=== PATIENT | female | born 1980 | race Caucasian/White ===

== ENCOUNTER → 2016-08-13 | Outpatient (CLI) | payer OTHER ==
[~2016-08-13] MED LIST: /ESOM40CA; /PREG100CA PO; ABIL10TA PO; ADVAIR; ALB2.5NEB INH; ALBU17IN INH; ALEVE; AMIT25TA2; AMIT75TA PO; BCP; BUPR15TA; CALCTAB54 PO; CELE20TA PO; CETI10TA PO; CLAR10CA3 PO; COLA100C2; CYMB60CA3 PO; DICY10CA PO; DOXY150C PO; DULE200A INH; EXCETAB; FLEXERIL; FLINCHW9 PO; FLON0.054; IBUP800T OR; IMIT50TA PO; MUCI600T34 PO; NORC5TAB PO; OXYB10TA PO; OXYB5TAB80 PO; PERC10TA17 PO; PERC5TAB8; PERC5TAB8 OR; POTA10TA44 PO; PRED10PA PO; PRED20TA PO; PRED50TA2 PO; SAVELLA; SING10TA31; SING4GRA PO; SYMB16INH INH; TESS100C PO; TOPA100T PO; VALI5TAB PO; VENTAER; VITA50003 PO; VITA500T53 PO; XOPEAER IN; magnesium oxide PO
== END ==
LOC: M LAB 08:13
PROVIDERS: ATTEND Obstetrics & Gynecology
DX: Z36 Encounter for antenatal screening of mother (principal); Z3A.00 Weeks of gestation of pregnancy not specified

== ENCOUNTER 2016-08-28 19:34 | Emergency (ER) | payer OTHER ==
[~2016-08-28] VITALS: Ht 167.6 cm; Wt 99.8 kg
[2016-08-28] MEDS ORDERED: OXYC15TA76 PO (19:47)
[2016-08-28] MEDS ORDERED: GABA-283 PO (19:47)
[2016-08-28] MEDS ORDERED: OXYCODONE/APAP 5MG/325MG(BULK FOR ED) 1 TABLET PO ONE (21:45)
[2016-08-28 21:57] VITALS: BP 135/99
== END 2016-08-28 22:00 | disposition home or self-care (01) ==
LOC: M ED 21:47
DX: O99.89 Other specified diseases and conditions complicating pregnancy, childbirth and the puerperium (principal); M54.5 Low back pain; G89.29 Other chronic pain; O99.513 Diseases of the respiratory system complicating pregnancy, third trimester; J45.909 Unspecified asthma, uncomplicated; O99.343 Other mental disorders complicating pregnancy, third trimester; F32.9 Major depressive disorder, single episode, unspecified; F41.9 Anxiety disorder, unspecified; O99.333 Smoking (tobacco) complicating pregnancy, third trimester; F17.210 Nicotine dependence, cigarettes, uncomplicated; Z3A.31 31 weeks gestation of pregnancy

== ENCOUNTER 2016-09-03 09:48 | Emergency (ER) | payer OTHER ==
[~2016-09-03] VITALS: Ht 167.6 cm; Wt 99.8 kg
[2016-09-03 09:48] VITALS: BP 116/77
[~2016-09-03 09:48] MED LIST changes: +GABA-283 PO; +OXYC15TA76 PO
[2016-09-03] MEDS ORDERED: ACET-654 PO (11:36)
[2016-09-03] MEDS ORDERED: ROLA1CHW PO (11:36)
[2016-09-04] MEDS ORDERED: BENA25TA9 PO (18:52)
== END 2016-09-03 10:31 | disposition admitted as inpatient to this hospital (09) ==
LOC: M ED 10:23
DX: O99.513 Diseases of the respiratory system complicating pregnancy, third trimester (principal); R06.02 Shortness of breath; J45.909 Unspecified asthma, uncomplicated; Z3A.32 32 weeks gestation of pregnancy; Z79.899 Other long term (current) drug therapy

== ENCOUNTER 2016-09-03 10:25 | Outpatient (CLI) | payer OTHER ==
[~2016-09-03] VITALS: Ht 167.6 cm; Wt 100.0 kg
[2016-09-03 10:41] VITALS: BP 123/74
[2016-09-03] MEDS ORDERED: ACET-654 PO (11:36)
[2016-09-03] MEDS ORDERED: ROLA1CHW PO (11:36)
[2016-09-03] MEDS ORDERED: LR 1,000 ML IV SCH (11:45)
[2016-09-03] MEDS ORDERED: LR 1,000 ML IV ONE (11:45)
[2016-09-03 12:06] VITALS: BP 119/83
[2016-09-03 12:54] LABS: MEAN CORPUSCULAR HGB CONC 33.6 g/dl (32.0-36.5); MEAN CORPUSCULAR VOLUME 83.3 fl (80.0-96.0); RED CELL DISTRIBUTION WIDTH 12.6 % (11.5-14.5); WHITE BLOOD COUNT 12.6 K/mm3 (4.0-10.0)
[2016-09-03 13:18] LABS: ALBUMIN 2.4 GM/DL (3.2-5.2); ALBUMIN/GLOBULIN RATIO 0.63 (1.00-1.93); ALKALINE PHOSPHATASE 138 U/L (45-117); ALT/SGPT 17 U/L (12-78); ANION GAP 9 MEQ/L (8-16); AST/SGOT 16 U/L (15-37); BILIRUBIN,TOTAL 0.2 MG/DL (0.2-1.0); BLOOD UREA NITROGEN 11 MG/DL (7-18); CALCIUM LEVEL 8.3 MG/DL (8.5-10.1); CARBON DIOXIDE LEVEL 24 MEQ/L (21-32); CHLORIDE LEVEL 105 MEQ/L (98-107); CREATININE FOR GFR 0.74 MG/DL (0.55-1.02); GLOMERULAR FILTRATION RATE > 60.0 (>60); GLUCOSE, FASTING 82 MG/DL (70-105); POTASSIUM SERUM 4.3 MEQ/L (3.5-5.1); SODIUM LEVEL 138 MEQ/L (136-145); TOTAL PROTEIN 6.2 GM/DL (6.4-8.2)
[2016-09-04] MEDS ORDERED: BENA25TA9 PO (18:52)
== END 2016-09-03 15:30 | disposition home or self-care (01) ==
LOC: M LDO 10:25
PROVIDERS: ATTEND Advanced Practice Midwife
DX: O99.89 Other specified diseases and conditions complicating pregnancy, childbirth and the puerperium (principal); E16.2 Hypoglycemia, unspecified; E86.0 Dehydration; G89.29 Other chronic pain; K21.9 Gastro-esophageal reflux disease without esophagitis; O99.513 Diseases of the respiratory system complicating pregnancy, third trimester; O99.343 Other mental disorders complicating pregnancy, third trimester; O99.323 Drug use complicating pregnancy, third trimester; O99.333 Smoking (tobacco) complicating pregnancy, third trimester; Z98.84 Bariatric surgery status; O09.523 Supervision of elderly multigravida, third trimester; Z3A.32 32 weeks gestation of pregnancy

== ENCOUNTER 2016-09-04 18:00 | Outpatient (CLI) | payer OTHER ==
[~2016-09-04] VITALS: Ht 167.6 cm; Wt 100.0 kg
[~2016-09-04 18:00] MED LIST changes: +ACET-654 PO; +ROLA1CHW PO
[2016-09-04 18:08] VITALS: BP 134/80
[2016-09-04] MEDS ORDERED: BENA25TA9 PO (18:52)
[2016-09-04 19:47] VITALS: BP 130/81
[2016-09-04] MEDS ORDERED: GABAPENTIN 300 MG CAP PO SCH (21:00)
[2016-09-04] MEDS ORDERED: AMITRIPTYLINE 10 MG TAB PO SCH (21:00)
[2016-09-04] MEDS ORDERED: busPIRone 10 MG TAB PO SCH (21:00)
[2016-09-04] MEDS ORDERED: TERBUTALINE SULFATE 1 MG/ML VIAL (J3105) SC ONE (23:30)
[2016-09-04] MEDS ORDERED: diphenhydrAMINE 25 MG CAP PO PRN (23:45)
[2016-09-04] MEDS ORDERED: ACETAMINOPHEN 500 MG TAB PO PRN (23:45)
[2016-09-04 23:48] VITALS: BP 119/79
--- NOTE | 2016-09-05 00:02 | HPE ---
DATE OF ADMISSION: 09/04/2016 HISTORY: A 35-year-old G7, P2-0-4-2 female at 32-3/7 weeks gestation, estimated date of confinement (EDC) 10/27/2016 by last menstrual period (LMP) consistent with a first-trimester ultrasound presents with severe lower back pain that is debilitating. She has a history of chronic back pain due to spinal stenosis. She is a chronic narcotic user, taking 18 tablets per 24 hours of oxycodone. She ran out of oxycodone 2 days ago. She previously was prescribed approximately 500 oxycodone tablets per month by her primary care physician to manage her chronic pain. She was subsequently discharged from the practice with 30 days' notice due to breaking the pain contract by seeking pain medications outside of their office. She denies symptoms of withdrawal and says the pain has become more severe. course is through Dr. Eddy at [facility]. She has had contractions intermittently throughout . COURSE: Patient has had regular care through Dr. Eddy at [facility]. She was seen in consultation with Dr. Guerrero at [facility] in [place]. Plan is for repeat section with a history of two prior sections. OBSTETRICAL HISTORY: Term section times two. MEDICAL HISTORY: 1. Asthma. 2. Depression. 3. Gastroesophageal reflux disease (GERD). 4. Spinal stenosis. 5. Oxycodone dependence due to back pain. SURGICAL HISTORY: 1. Gastric bypass December 2013. 2. Cholecystectomy February 2014. 3. Knee surgery. 4. Tonsillectomy 2011. 5. section times two. ALLERGIES: ERYTHROMYCIN, which causes hives, and NONSTEROIDS, which cause gastrointestinal (GI) upset. MEDICATIONS: - calcium citrate - vitamin Clinic - BuSpar 10 mg by mouth twice a day - Benadryl 25 mg every 6 hours as needed - Tylenol - gabapentin 300 mg by mouth three times a day SOCIAL HISTORY: The patient is a smoker. She is a chronic narcotic user. She denies other drug use. FAMILY HISTORY: Noncontributory. PHYSICAL EXAMINATION: Blood pressure 134/80, pulse 106, afebrile. She is no apparent distress. Head and neck normal. Lungs clear. Heart regular rate and rhythm. Abdomen nontender, gravid. heart tones category 1. Cervix long and closed. Contractions every 2-5 minutes. Extremities nontender. ASSESSMENT: A 35-year-old G7, P2-0-4-2 female at 32-4/7 weeks gestation who presents with contractions. She has a history of chronic back pain and is currently not being medicated. PLAN: Admit for IV fluids and observation of contractions. Will look for cervical change. Will observe for finds of opioid withdrawal. Patient has medical appointment to see a different provider regarding her chronic back pain and narcotic use. TAMI
[2016-09-05 00:40] VITALS: BP 119/54
[2016-09-05 02:23] VITALS: BP 113/58
[2016-09-05 05:20] VITALS: BP 109/67
[2016-09-05 06:58] VITALS: BP 128/74
== END 2016-09-05 07:21 | disposition home or self-care (01) ==
LOC: M LDO 18:00
PROVIDERS: ATTEND Specialist
DX: O99.89 Other specified diseases and conditions complicating pregnancy, childbirth and the puerperium (principal); M48.00 Spinal stenosis, site unspecified; G89.29 Other chronic pain; K21.9 Gastro-esophageal reflux disease without esophagitis; O99.323 Drug use complicating pregnancy, third trimester; O99.513 Diseases of the respiratory system complicating pregnancy, third trimester; O99.343 Other mental disorders complicating pregnancy, third trimester; Z98.84 Bariatric surgery status; O09.523 Supervision of elderly multigravida, third trimester; Z3A.32 32 weeks gestation of pregnancy

== ENCOUNTER → 2016-09-12 | Outpatient (REF) | payer OTHER ==
[~2016-09-12] MED LIST changes: +BENA25TA9 PO
== END ==
LOC: M LAB REF 10:31
PROVIDERS: ATTEND Advanced Practice Midwife
DX: Z34.83 Encounter for supervision of other normal pregnancy, third trimester (principal); Z36 Encounter for antenatal screening of mother

== ENCOUNTER → 2016-09-22 | Outpatient (REF) | payer OTHER ==
[2016-09-28 08:06] LABS: BENZODIAZEPINES, URINE SCREEN Negative ng/mL (Cutoff=200); METHADONE, URINE SCREEN Negative ng/mL (Cutoff=300); OXYCODONE URINE Negative (Cutoff=100); pH, URINE 5.8 (4.5-8.9)
== END ==
LOC: M LAB REF 17:18
PROVIDERS: ATTEND Nurse Practitioner Family
DX: M54.41 Lumbago with sciatica, right side (principal)

== ENCOUNTER → 2016-10-01 | Outpatient (REF) | payer OTHER ==
[~2016-10-01] MED LIST changes: -ACET-654 PO; +ACET1TAB17 PO; +BENA25TA10 PO; -BENA25TA9 PO; +BUSP15TA47 PO; +DIPH50CA29 PO; +GABA-282 PO; +HYDR-3713 PO; +IMIT4KIT SC; +NEUR600T PO; +NORC1TAB4 PO; +OXYC-517; +OXYC1SOL3 PO; +OXYC1TAB23 PO; +PANT40TA2 PO; -PERC10TA17 PO; +PERC10TA26 PO; +PHEN1SUP6 PO; +PROM50TA4 PO; +PROT1TAB2 PO; +PROZ10CA7 PO; +ROBA500T PO; +SUCR1TAB56 PO; +TYLETAB14 PO; +VITA1CAP40 PO; -VITA50003 PO; +ZOLO25TA PO
== END ==
LOC: M LAB REF 17:28
PROVIDERS: ATTEND Specialist
DX: Z34.83 Encounter for supervision of other normal pregnancy, third trimester (principal)

== ENCOUNTER → 2016-10-02 | Outpatient (CLI) | payer OTHER ==
--- NOTE | 2016-10-02 13:16 | REP ---
Clinical: Growth evaluation. Comparison: None . Findings: Examination demonstrates a single live intrauterine in cephalic presentation. motion is identified by technologist. Placenta is noted posteriorly and grade one without evidence for placenta previa or abruption. Amniotic fluid volume is normal. Gestational age by LMP 36 weeks 3 days with CLAUDETTE 10/27/2016 . Gestational age by current measurements 35 weeks 4 days with CLAUDETTE 11/02/2016 . FHR equals 141 beats per minute. BPD 8.9 cm 36 weeks 1 day HC 32.4 cm 36 weeks 5 days AC 33.1 cm 37 weeks 0 days FL 6.8 cm 34 weeks 6 days HL 6.3 cm 36 weeks 3 days HC/AC ratio 0.98 Estimated weight 2916 grams ( 51st percentile). ARAVIND equals 18.2 cm (7.6 - 24.7). Impression: Single live advanced gestation in cephalic presentation demonstrating appropriate interval growth. Estimated weight normal. ARAVIND normal. Signed by Lauro Neal MD 10/02/2016 01:07 P
== END ==
LOC: M SMT 11:07
PROVIDERS: ATTEND Advanced Practice Midwife
DX: K91.2 Postsurgical malabsorption, not elsewhere classified (principal)

== ENCOUNTER 2016-10-12 04:50 | Emergency (ER) | payer OTHER ==
[~2016-10-12] VITALS: Ht 167.6 cm; Wt 105.9 kg
[~2016-10-12 04:50] MED LIST changes: -BUSP15TA47 PO; -DIPH50CA29 PO; -GABA-282 PO; -HYDR-3713 PO; -IMIT4KIT SC; -NEUR600T PO; -NORC1TAB4 PO; -OXYC-517; -OXYC1SOL3 PO; -OXYC1TAB23 PO; -PANT40TA2 PO; -PHEN1SUP6 PO; -PROM50TA4 PO; -PROT1TAB2 PO; -PROZ10CA7 PO; -ROBA500T PO; -SUCR1TAB56 PO; -TYLETAB14 PO; -ZOLO25TA PO
[2016-10-12] MEDS ORDERED: OXYC15TA76 PO (05:10)
[2016-10-12] MEDS ORDERED: DIPH50CA29 PO (05:10)
[2016-10-12 05:59] VITALS: BP 152/70
[2016-10-12] MEDS ORDERED: LORazepam 0.5 MG TAB PO STA (06:25)
[2016-10-13] MEDS ORDERED: PHEN1SUP6 PO (08:18)
[2016-10-13] MEDS ORDERED: GABA-282 PO (08:18)
[2016-10-13] MEDS ORDERED: BUSP15TA47 PO (08:18)
[2016-10-13] MEDS ORDERED: PROZ10CA7 PO (08:18)
[2016-10-24] MEDS ORDERED: OXYC1SOL3 PO (12:44)
== END 2016-10-12 06:48 | disposition home or self-care (01) ==
LOC: M ED 04:50
DX: F41.1 Generalized anxiety disorder (principal); F32.9 Major depressive disorder, single episode, unspecified; M79.7 Fibromyalgia; G43.909 Migraine, unspecified, not intractable, without status migrainosus; Z79.899 Other long term (current) drug therapy; Z88.1 Allergy status to other antibiotic agents; Z88.6 Allergy status to analgesic agent

== ENCOUNTER 2016-10-14 21:53 | Outpatient (CLI) | payer OTHER ==
[~2016-10-14] VITALS: Ht 167.6 cm; Wt 100.0 kg
[~2016-10-14 21:53] MED LIST changes: +BUSP15TA47 PO; +DIPH50CA29 PO; +GABA-282 PO; +PHEN1SUP6 PO; +PROZ10CA7 PO
[2016-10-14] MEDS ORDERED: IMIT4KIT SC (22:08)
[2016-10-14 22:10] VITALS: BP 125/89
[2016-10-14 22:11] VITALS: BP 125/89
[2016-10-14] MEDS ORDERED: LR 1,000 ML IV ONE (22:30)
[2016-10-14] MEDS ORDERED: PROMETHAZINE INJ 25 MG/ML VIAL (J2550) IV ONE (22:30)
[2016-10-15] MEDS ORDERED: diphenhydrAMINE INJ 50MG/ML VIAL (J1200) IV ONE
[2016-10-24] MEDS ORDERED: OXYC1SOL3 PO (12:44)
== END 2016-10-15 07:00 | disposition home or self-care (01) ==
LOC: M LDO 21:53
PROVIDERS: ATTEND Obstetrics & Gynecology
DX: O99.89 Other specified diseases and conditions complicating pregnancy, childbirth and the puerperium (principal); Z3A.38 38 weeks gestation of pregnancy; G43.909 Migraine, unspecified, not intractable, without status migrainosus; Z88.8 Allergy status to other drugs, medicaments and biological substances

== ENCOUNTER → 2016-10-15 | Outpatient (CLI) | payer OTHER ==
[~2016-10-15] MED LIST changes: +HYDR-3713 PO; +IMIT4KIT SC; +NEUR600T PO; +NORC1TAB4 PO; +OXYC-517; +OXYC1SOL3 PO; +OXYC1TAB23 PO; +PANT40TA2 PO; +PROM50TA4 PO; +PROT1TAB2 PO; +ROBA500T PO; +SUCR1TAB56 PO; +TYLETAB14 PO; +ZOLO25TA PO
[2016-10-16 10:07] LABS: ADD MANUAL DIFFER YES; MEAN CORPUSCULAR HEMOGLOBIN 24.9 pg (27.0-33.0); MEAN CORPUSCULAR HGB CONC 31.6 g/dl (32.0-36.5); MEAN CORPUSCULAR VOLUME 78.9 fl (80.0-96.0); PLATELET COUNT, AUTOMATED 352 k/mm3 (150-450); RED CELL DISTRIBUTION WIDTH 13.6 % (11.5-14.5)
[2016-10-16 10:41] LABS: BASOPHILS 1 % (0-4)
[2016-10-16 10:42] LABS: HYPOCHROMASIA 1+
[2016-10-16 10:43] LABS: THYROXINE (T4) 14.9 UG/DL (4.5-12.0)
== END ==
LOC: M SMT 15:48
PROVIDERS: ATTEND Advanced Practice Midwife
DX: R53.81 Other malaise (principal)

== ENCOUNTER 2016-10-17 17:16 | Inpatient (IN) | payer OTHER ==
[~2016-10-17] VITALS: Ht 167.6 cm; Wt 104.0 kg
[~2016-10-17 17:16] MED LIST changes: -HYDR-3713 PO; -NEUR600T PO; -NORC1TAB4 PO; -OXYC-517; -OXYC1SOL3 PO; -OXYC1TAB23 PO; -PANT40TA2 PO; -PROM50TA4 PO; -PROT1TAB2 PO; -ROBA500T PO; -SUCR1TAB56 PO; -TYLETAB14 PO; -ZOLO25TA PO
[2016-10-17 17:33] VITALS: BP 134/93
[2016-10-17 17:43] VITALS: BP 119/77
[2016-10-17] MEDS ORDERED: LR 1,000 ML IV SCH (18:19)
[2016-10-17] MEDS ORDERED: LACTATED RINGER'S 1000 ML IV STA (18:19)
[2016-10-17] MEDS ORDERED: MORPHINE PRES-FREE INJ 10 MG/10 ML VIAL (J2274) As Ordered ONE (18:25)
[2016-10-17] MEDS ORDERED: OXYTOCIN INJ 10 UNITS/ML VIAL (J2590) As Ordered ONE ×2 (18:26→19:41)
[2016-10-17] MEDS ORDERED: BICITRA 30ML SOLN UDC PO ONE (18:30)
[2016-10-17 18:42] LABS: MEAN CORPUSCULAR HEMOGLOBIN 25.3 pg (27.0-33.0); MEAN CORPUSCULAR HGB CONC 32.8 g/dl (32.0-36.5); MEAN CORPUSCULAR VOLUME 77.1 fl (80.0-96.0); WHITE BLOOD COUNT 13.2 K/mm3 (4.0-10.0)
[2016-10-17] MEDS ORDERED: PHENYLephrine HCL 500 MCG/5 ML (100MCG/ML) SYRINGE (J2370) As Ordered ONE (19:01)
[2016-10-17] MEDS ORDERED: ePHEDrine SULFATE 25 MG/5 ML(5MG/ML) SYRINGE As Ordered ONE (19:01)
[2016-10-17] MEDS ORDERED: NALBUPHINE HCL 10 MG/ML AMP (J2300) IV PRN ×3 (19:06→22:00)
[2016-10-17] MEDS ORDERED: NALOXONE INJ 0.4 MG/1 ML VIAL (J2310) IV PRN ×3 (19:06→22:00)
[2016-10-17] MEDS ORDERED: METOCLOPRAMIDE INJ 10MG/2ML VIAL (J2765) IV PRN (19:06)
[2016-10-17] MEDS ORDERED: ONDANSETRON 4MG/2ML VIAL (J2405) IV PRN ×4 (19:06→22:00)
[2016-10-17] MEDS ORDERED: MIDAZOLAM INJ 2 MG/2 ML VIAL (J2250) As Ordered ONE (19:25)
[2016-10-17] MEDS ORDERED: PROPOFOL 200 MG/20 ML VIAL As Ordered ONE ×2 (19:25→19:39)
[2016-10-17] MEDS ORDERED: ONDANSETRON 4MG/2ML VIAL (J2405) As Ordered ONE (19:26)
[2016-10-17 19:30] LABS: CORD GAS ABE V -8.9; CORD GAS HCO3 V 19.5 MEQ/L; CORD GAS O2 SAT V 37.5 %; CORD GAS PCO2 V 52.1 mmHg; CORD GAS PH V 7.191 UNITS; CORD GAS PO2 V 20.2 mmHg; CORD GAS SBC V 16.2 MEQ/L; CORD GAS TCO2 V 21.1 MEQ/L
[2016-10-17 19:31] LABS: CORD GAS HCO3 A 19.7 MEQ/L; CORD GAS O2 SAT A 23.1 %; CORD GAS PCO2 A 54.2 mmHg; CORD GAS PH A 7.178 UNITS; CORD GAS PO2 A 14.8 mmHg; CORD GAS SBC A 15.9 MEQ/L; CORD GAS TCO2 A 21.3 MEQ/L
[2016-10-17] MEDS ORDERED: KETOROLAC 60 MG/2 ML VIAL (J1885) As Ordered ONE (19:32)
[2016-10-17] MEDS ORDERED: LIDOCAINE 2% INJ 100 MG/5 ML SDV (FOR ANES.) As Ordered ONE (19:32)
[2016-10-17] MEDS ORDERED: OXYTOCIN 30 UNITS IN 0.9% NaCl 500ML IV BAG (J2590) As Ordered ONE (19:48)
[2016-10-17] MEDS: KETOROLAC 30 MG/ML VIAL (J1885) IV SCH (20:00)
[2016-10-17] MEDS ORDERED: RHOGAM 300 MCG (1500 IU) INJ (J2790) IM SCH (20:00)
[2016-10-17] MEDS ORDERED: MEASLES,MUMPS,RUBELLA VACCINE INJ (MMR-II) (90707) SC SCH (20:00)
[2016-10-17] MEDS ORDERED: PERCOCET 5MG/325MG TAB PO PRN ×2 (20:00)
[2016-10-17] MEDS ORDERED: PROMETHAZINE 25 MG TAB PO PRN (20:00)
[2016-10-17] MEDS ORDERED: fentaNYL 100 MCG/2 ML INJECTION (J3010) As Ordered ONE (20:04)
[2016-10-17] MEDS ORDERED: fentaNYL 100 MCG/2 ML INJECTION (J3010) IV PRN (20:15)
[2016-10-17] MEDS ORDERED: HYDROmorphone HCL 1 MG/ML SYRINGE (J1170) As Ordered ONE ×2 (20:48→21:19)
[2016-10-17] MEDS ORDERED: HYDROmorphone HCL 1 MG/ML SYRINGE (J1170) IV PRN (21:17)
[2016-10-17] MEDS ORDERED: NS 1,000 ML IV SCH (21:55)
[2016-10-17] MEDS ORDERED: diphenhydrAMINE INJ 50MG/ML VIAL (J1200) IV PRN (22:00)
[2016-10-17] MEDS ORDERED: MORPHINE 1MG/ML IN 0.9% NACL 100ML IV BAG IV PRN ×2 (22:00→22:30)
[2016-10-17] MEDS ORDERED: EPIDURAL/PCA KEYS XX PRN (22:00)
[2016-10-18] VITALS (11 sets, daily range): BP systolic 101–126; BP diastolic 50–77
[2016-10-18] MEDS: DOCUSATE SODIUM 100 MG CAP PO SCH ×3 (02:15→19:54)
[2016-10-18] MEDS: LR 1,000 ML IV SCH ×4 (02:15→19:57)
[2016-10-18] MEDS: KETOROLAC 30 MG/ML VIAL (J1885) IV SCH ×3 (02:15→14:26)
[2016-10-18 06:09] LABS: MEAN CORPUSCULAR HEMOGLOBIN 24.8 pg (27.0-33.0); MEAN CORPUSCULAR HGB CONC 31.8 g/dl (32.0-36.5); MEAN CORPUSCULAR VOLUME 77.9 fl (80.0-96.0); RED CELL DISTRIBUTION WIDTH 13.8 % (11.5-14.5); WHITE BLOOD COUNT 12.2 K/mm3 (4.0-10.0)
[2016-10-18] MEDS: PRENATAL VITAMINS CHEWABLE TABLET PO SCH (10:00)
[2016-10-18] MEDS: PERCOCET 5MG/325MG TAB PO PRN ×4 (11:32→23:44)
[2016-10-18] MEDS ORDERED: LR 1,000 ML IV ONE (14:45)
[2016-10-18] MEDS ORDERED: MORPHINE 2 MG/ML 1ML SYRINGE IV ONE (23:00)
[2016-10-19] MEDS: LR 1,000 ML IV SCH ×4 (01:11→19:36)
[2016-10-19] MEDS: PERCOCET 5MG/325MG TAB PO PRN ×6 (03:49→23:57)
[2016-10-19 06:19] VITALS: BP 95/55
[2016-10-19] MEDS: PRENATAL VITAMINS CHEWABLE TABLET PO SCH (08:10)
[2016-10-19] MEDS: DOCUSATE SODIUM 100 MG CAP PO SCH ×2 (08:10→20:38)
[2016-10-19] MEDS ORDERED: MORPHINE 10 MG/ML 1ML VIAL IV ONE (11:00)
[2016-10-19] MEDS: busPIRone 5 MG TAB PO SCH ×3 (12:17→19:35)
[2016-10-19] MEDS: FLUoxetine 10 MG CAP PO SCH (12:17)
[2016-10-19 18:02] VITALS: BP 139/74
[2016-10-20] MEDS: PERCOCET 5MG/325MG TAB PO PRN ×5 (05:17→21:47)
[2016-10-20 06:05] VITALS: BP 122/60
[2016-10-20] MEDS: FLUoxetine 10 MG CAP PO SCH (09:20)
[2016-10-20] MEDS: busPIRone 5 MG TAB PO SCH ×3 (09:20→21:47)
[2016-10-20] MEDS: DOCUSATE SODIUM 100 MG CAP PO SCH ×2 (09:20→21:47)
[2016-10-20] MEDS: PRENATAL VITAMINS CHEWABLE TABLET PO SCH (09:20)
[2016-10-20] MEDS: LR 1,000 ML IV SCH ×2 (11:57→17:16)
[2016-10-20 18:00] VITALS: BP 138/70
[2016-10-20 20:41] VITALS: BP 138/70
[2016-10-21] MEDS: LR 1,000 ML IV SCH (02:16)
[2016-10-21] MEDS: PERCOCET 5MG/325MG TAB PO PRN ×3 (04:39→12:26)
[2016-10-21 06:07] VITALS: BP 154/73
[2016-10-21] MEDS: DOCUSATE SODIUM 100 MG CAP PO SCH (08:26)
[2016-10-21] MEDS: busPIRone 5 MG TAB PO SCH (08:26)
[2016-10-21] MEDS: FLUoxetine 10 MG CAP PO SCH (08:27)
--- NOTE | 2016-10-21 13:51 | DSES ---
DATE OF ADMISSION: 10/17/2016 DATE OF DISCHARGE: 10/21/2016 HISTORY: 36-year-old 7, para 2-0-4-2 female at 38-4/7 weeks gestation who presented with regular painful contractions for the last several hours. She has a history of two prior sections. Her course was complicated by history of opioid dependence. HOSPITAL COURSE: On 10/17/2016, the patient was admitted with a diagnosis of active labor. Due to history of two prior sections, plan was made to proceed with delivery. On 10/17/2016 she underwent repeat section without complication. Her postoperative course was significant for pain control issues as expected based on her history of opioid dependence. She had adequate return of bladder and bowel function. Her postoperative hemoglobin was 7.8 g/dL. She was deemed stable for discharge on postop day 4. ADMISSION DIAGNOSIS: at 38-4/7 weeks gestation. Prior section times two. Labor. DISCHARGE DIAGNOSES: Delivered. PROCEDURE: Repeat low transverse section. DISPOSITION: Patient will followup with [facility] in two weeks. Instructions reviewed.
[2016-10-24] MEDS ORDERED: OXYC1SOL3 PO (12:44)
== END 2016-10-21 12:25 | disposition home or self-care (01) | DRG 540 ==
LOC: M LDO 17:16 → M LDI 18:07 → M OBS 21:37 → M MS5PR 10-18 00:25 → M OBS 10-18 12:08
PROVIDERS: ADMIT Obstetrics & Gynecology; ATTEND Obstetrics & Gynecology
PROC: 10D00Z1 Extraction of Products of Conception, Low, Open Approach (ICD-10-PCS; principal; 2016-10-17 19:00)
DX: O76 Abnormality in fetal heart rate and rhythm complicating labor and delivery (principal); F11.20 Opioid dependence, uncomplicated; Z37.0 Single live birth; Z3A.38 38 weeks gestation of pregnancy; Z90.49 Acquired absence of other specified parts of digestive tract; Z79.899 Other long term (current) drug therapy; F17.210 Nicotine dependence, cigarettes, uncomplicated; Z83.3 Family history of diabetes mellitus; O34.211 Maternal care for low transverse scar from previous cesarean delivery; O99.334 Smoking (tobacco) complicating childbirth; O99.844 Bariatric surgery status complicating childbirth; O94 Sequelae of complication of pregnancy, childbirth, and the puerperium; O77.0 Labor and delivery complicated by meconium in amniotic fluid; N73.6 Female pelvic peritoneal adhesions (postinfective)

== ENCOUNTER 2016-11-01 23:05 | Emergency (ER) | payer OTHER ==
[~2016-11-01] VITALS: Ht 167.6 cm; Wt 95.9 kg
[2016-11-01 23:05] VITALS: BP 139/79
[~2016-11-01 23:05] MED LIST changes: +OXYC1SOL3 PO
[2016-11-02] MEDS ORDERED: TYLETAB14 PO (00:36)
[2016-11-02] MEDS ORDERED: OXYCODONE/APAP 5MG/325MG(BULK FOR ED) 1 TABLET PO ONE (00:45)
== END 2016-11-02 00:50 | disposition home or self-care (01) ==
LOC: M ED 23:05
DX: R51 Headache (principal); Z87.891 Personal history of nicotine dependence; Z88.1 Allergy status to other antibiotic agents; Z88.6 Allergy status to analgesic agent; Z79.899 Other long term (current) drug therapy

== ENCOUNTER 2016-11-02 23:25 | Emergency (ER) | payer OTHER ==
[~2016-11-02] VITALS: Ht 167.6 cm; Wt 95.9 kg
[2016-11-02 23:25] VITALS: BP 161/96
[~2016-11-02 23:25] MED LIST changes: +TYLETAB14 PO
[2016-11-03] MEDS ORDERED: OXYCODONE/APAP 5MG/325MG(BULK FOR ED) 1 TABLET PO ONE (00:45)
== END 2016-11-03 01:01 | disposition home or self-care (01) ==
LOC: M ED 23:25
DX: G50.1 Atypical facial pain (principal); G43.909 Migraine, unspecified, not intractable, without status migrainosus; M79.7 Fibromyalgia; M06.9 Rheumatoid arthritis, unspecified; J45.909 Unspecified asthma, uncomplicated; G47.33 Obstructive sleep apnea (adult) (pediatric); F41.9 Anxiety disorder, unspecified; F32.9 Major depressive disorder, single episode, unspecified; F43.10 Post-traumatic stress disorder, unspecified; M54.9 Dorsalgia, unspecified; Z79.899 Other long term (current) drug therapy; Z88.1 Allergy status to other antibiotic agents; Z88.6 Allergy status to analgesic agent; Z98.84 Bariatric surgery status

== ENCOUNTER → 2016-11-07 | Outpatient (CLI) | payer OTHER ==
[~2016-11-07] MED LIST changes: +HYDR-3713 PO; +NEUR600T PO; +NORC1TAB4 PO; +OXYC-517; +OXYC1TAB23 PO; +PANT40TA2 PO; +PROM50TA4 PO; +PROT1TAB2 PO; +ROBA500T PO; +SUCR1TAB56 PO; +ZOLO25TA PO
--- NOTE | 2016-12-11 01:13 | ECWPNPC ---
PATIENT NAME: ROBERT WU : 1980 GENDER: FEMALE VISIT DATE: 11/07/2016 DISCHARGE DATE: 11/07/16 1245 VISIT LOCKED DATE TIME: PHYSICIAN: SHIVANI WERNER RESOURCE: SHIVANI WERNER REASON FOR APPOINTMENT 1. BACK HISTORY OF PRESENT ILLNESS FALL RISK SCREENIN36 Y/O FEMALE REFERRED BY RUDY EDWARDS FOR CHRONIC GENERALIZED BACK PAIN.HAS BEEN ON CHRONIC OPIOD PAIN MEDICATION FOR 15 YEARS.PATIENT HAS A STRONG DESIRE TO DECREASE OPIOD PAIN MEDICINE.CURRENTLY TAKING PERCOCET 5/325 TWO TAB Q6H.HAS HAD BACK PAIN ALL HER LIFE.DENIES PRECIPITATING EVENT.PAIN IS AGGREVATED BY ANY MOVEMENT,LIFTING AND BENDING.PAIN IS RELIEVED SOMEWHAT WITH HEAT AND LAYING ON LEFT SIDE IN POSITION.DENIES BOWEL OR BLADDER INCONTINENCE.SHE HAS RECENT DELIVERY.HISTORY OF GASTRIC BYPASS AND UNABLE TO HAVE NSAIDS.SHE IS LOOKING FOR ALTERNATIVES TO PAIN MEDICATION BUT AT THE SAME TIME IS VERY SCARED TO BE OFF.WE HAD A LONG DISCUSSION REGARDING OUR POSITION IN REGARDS TO OPIOD PAIN MEDICATION AND WOULD ONLY AGREE TO A WEAN DOWN APPROACH AFTER I DISCUSS CASE WITH HER PRIMARY CARE PROVIDER.SHE IS AWARE THAT OUR GOAL WOULD BE TO GET HER OFF OPIOD PAIN MEDICATION.SHE IS RATING PAIN VAS 9/10. SCREENING :NO FALLS IN THE PAST YEAR PAIN SCREENING: PATIENT HAS A COMPLAINT OF ACUTE OR CHRONIC PAIN :YES CURRENT MEDICATIONS TAKING DICYCLOMINE HCL 20 MG TABLET 1 TABLET ORALLY FOUR TIMES A DAY NEEDED TAKING IMITREX STATDOSE REFILL 4 MG/0.5ML SOLUTION CARTRIDGE 0.5 ML NEEDED SUBCUTANEOUS TWICE A DAY TAKING BUSPIRONE HCL 15 MG TABLET 1 TABLET ORALLY THREE TIMES DAILY, NOTES: [facility] TAKING BANOPHEN 50 MG CAPSULE 1 CAPSULE ORALLY EVERY 6 HOURS NEEDED, NOTES: [facility] TAKING GABAPENTIN 300 MG CAPSULE 1 CAPSULE ORALLY THREE TIMES A DAY TAKING ACETAMINOPHEN 325 MG TABLET 2 TABLETS NEEDED ORALLY EVERY 6 HRS TAKING PROMETHAZINE HCL 25 MG TABLET 1 TABLET NEEDED ORALLY EVERY 8 HOURS TAKING VENTOLIN HFA 108 (90 BASE) MCG/ACT AEROSOL SOLUTION 2 PUFFS NEEDED INHALATION EVERY 4 HRS TAKING SINGULAIR 10 MG TABLET 1 TABLET IN THE EVENING ORALLY ONCE A DAY TAKING GLUCOSE BLOOD - STRIP 1 STRIP IN VITRO TWICE A DAY E11.9 TAKING LANCETS 1 LANCET DX E11.9 TWICE A DAY TAKING FLUTICASONE PROPIONATE 50 MCG/ACT SUSPENSION 1 SPRAY IN EACH NOSTRIL NASALLY ONCE A DAY TAKING OXYCODONE HCL 5 MG TABLET 1 TABLET ORALLY EVERY 8 HRS TAKING PROZAC 10 MG CAPSULE 1 CAPSULE IN THE MORNING ORALLY ONCE A DAY MEDICATION LIST REVIEWED AND RECONCILED WITH THE PATIENT PAST MEDICAL HISTORY SPINAL STENOSIS DDD WITH CHRONIC BACK PAIN MIGRAINES ALLERGIC RHINNITIS DEPRESSION FIBROMYALGIA ANXIETY BIPOLAR D/O RA PTSD ALLERGIES BIAXIN: ANAPHYLAXIS: ALLERGY NSAIDS: GASTRIC BYPASS: SIDE EFFECTS SURGICAL HISTORY C SECTION BABYGIRL 01/25/2002 C SECTION BABY BOY 09/24/2005 TONSILLECTOMY 2011 ARTHROSCOPIC RIGHT KNEE SURGERY. 1999 GASTRIC BYPASS CHOLECYSTECTOMY 2017 FAMILY HISTORY FATHER: ALIVE, MEDICAL HX UNKNOWN MOTHER: ALIVE, MEDICAL HX UNKNOWN SIBLINGS: ALIVE, HYPOTHYROIDISM 1 SISTER(S) - HEALTHY. 2 SON(S) , 1 DAUGHTER(S) - HEALTHY. SOCIAL HISTORY GENERAL: TOBACCO USE ARE YOU A:CURRENT SMOKER HOW MANY CIGARETTES A DAY DO YOU SMOKE?5 OR LESS HOW SOON AFTER YOU WAKE UP DO YOU SMOKE YOUR FIRST CIGARETTE?AFTER 60 MIN HOW OFTEN DO YOU SMOKE CIGARETTES?SOME DAYS, BUT NOT EVERY DAY PATIENT COUNSELED ON THE DANGERS OF TOBACCO USE AND URGED TO QUIT:11/07/2016 ARE YOU INTERESTED IN QUITTING?NOT READY TO QUIT COUNSELED THE PATIENT ON SMOKING EFFECTS, EDUCATION [id number]/2017 LUNG CANCER SCREENING SMOKING STATUS:CURRENT SMOKER ALCOHOL SCREENING POINTS0 INTERPRETATIONNEGATIVE RECREATIONAL DRUG USE DRUG USE?NO PATIENT DENIES USE OF ANY ILLEGAL SUBSTANCE INCLUDING MARIJUANA OR COCAINE. CAFFEINE CAFFEINE USE?YES 1 CUP A DAY SEXUAL HX HAD SEX IN THE LAST 12 MONTHS (VAGINAL, ORAL, OR ANAL)?YES WITHMEN ONLY USE PROTECTION?NO PREVENTION STRATEGIES DISCUSSED:OTHER HAVE YOU EVER HAD AN STD?NO LMP:PT HIV / HEP-C SCREENING HIV TEST OFFERED TO PATIENT:YES DATE OFFERED:09/08/2016 TEST ACCEPTED:NO REASON:OTHER (DOCUMENT IN NOTE) NEGATIVE HEP-C TEST OFFERED TO PATIENT:YES DATE OFFERED:09/08/2016 TEST ACCEPTED:NO REASON:OTHER (DOCUMENT IN NOTE) NEGATIVE OCCUPATION: DISABLED FROM BACK . EXERCISE: NONE. MARITAL STATUS: HAS A SIGNIFICANT OTHER . OTHERS AT HOME: CHILDREN, OTHER NON-RELATIVE/FIANCE. JEHOVAH'S WITNESS [id number] AGNOSTIC LANGUAGE LANGUAGES SPOKEN:KYRGYZ EDUCATION LEVEL OF EDUCATION:NOT FINISHED HIGH SCHOOL 11TH GRADE LEARNING BARRIERS / SPECIAL NEEDS CHANGE FROM LAST VISIT?NO NEW PT. BARRIERS TO LEARNING?NO HEARING IMPAIRED?NO VISION IMPAIRED?YES :CORRECTIVE LENSES COGNITIVELY IMPAIRED?NO READINESS TO LEARN?YES LEARNING PREFERENCES?NO LEARNING CAPABILITIES PRESENT?YES EMOTIONAL BARRIERS?NO SPECIAL DEVICES?NO PHARMACY INFORMATICS MANAGER NEEDED?NO ADVANCE DIRECTIVES HEALTH CARE PROXY?YES NAME OF HCP JANES JAQUEZ DO YOU HAVE A DNR?NO WOULD YOU LIKE MORE INFORMATION?NO LIVING WILL?NO WOULD YOU LIKE MORE INFORMATION?NO POWER OF AUTOMOBILE [employer]EL CLUB COUNSELOR?NO WOULD YOU LIKE MORE INFORMATION?NO REVIEW OF SYSTEMS REVIEWED BY: PROVIDER: SHIVANI PHAN . CONSTITUTIONAL: ANY CHANGE IN YOUR MEDICAL CONDITION? NO . CHILLS NO . FEVER NO . INFECTION: DO YOU HAVE NEW INFECTIONS? NO . DO YOU HAVE HISTORY OF MRSA? NO . MUSCULOSKELETAL: ANY NEW PATTERNS OF PAIN OR NUMBNESS? NO . SYTEMIC LUPUS NO . GASTROENTEROLOGY: ANY NEW CHANGE IN BOWEL CONTROL? NO . BARRETTS ESOPHAGUS NO . CIRRHOSIS NO . HEPATITIS NO . LIVER FAILURE NO . ACID REFLUX NO . UNEXPLAINED WEIGHT LOSS NO . GENITOURINARY: ANY NEW CHANGE IN BLADDER CONTROL? NO . IS THERE A CHANCE YOU COULD BE ? NO . HEMATOLOGY/LYMPH: DO YOU TAKE ANY BLOOD THINNERS? (FOR EXAMPLE- COUMADIN, PLAVIX, AGGRENOX, PLATEL, PRADAXA, OR XARELTO) NO . WHEN WAS YOUR LAST DOSE? DATE: TIME: . LOW PLATELET COUNT NO . SICKLE CELL DISEASE NO . VON WILLIEBRANDS NO . FACTOR V LEIDEN NO . THALLASEMIA NO . ANEMIA NO . EASY BRUISING NO . NEUROLOGY: HAVE YOU FALLEN IN THE PAST 6 MONTHS? NO . ANY NEW EXTREMITY NUMBNESS OR WEAKNESS? NO . HEAD INJURY NO . DEMENTIA NO . CEREBRAL PALSY NO . MULTIPLE SCLEROSIS NO . DIZZINESS NO . HEADACHE NO . STROKES NO . VERTIGO NO . CARDIOLOGY: DO YOU HAVE A PACEMAKER OR DEFIBRILLATOR? NO . ANGINA NO . HEART ATTACK NO . HEART SURGERY NO . CONGESTIVE HEART FAILURE/FLUID OVERLOAD NO . CHEST PAIN NO . HIGH BLOOD PRESSURE NO . IRREGULAR HEART BEAT NO . RESPIRATORY: HAVE YOU BEEN SICK IN THE PAST WEEK? NO . FEVER NO . FLU LIKE SYMPTOMS? NO . CPAP NO . BYPAP NO . ASTHMA NO . EMPHYSEMA NO . CHRONIC LUNG DISEASES NO . SHORTNESS OF BREATH ON EXERTION NO . COUGH NO . SNORING NO . INTEGUMENTARY: DO YOU HAVE ANY RASHES OR OPEN SORES? NO . ALLERGIC/IMMUNO: ARE YOU ALLERGIC TO SHELLFISH OR IV DYE? NO . ANY NEW ALLERGIES? NO . PSYCHIATRIC: DO YOU HAVE THOUGHTS OF HURTING YOURSELF OR SOMEONE ELSE? NO . ARE YOU ABUSED, NEGLECTED, OR IN AN UNSAFE ENVIRONMENT? NO . ENDOCRINOLOGY: ARE YOU DIABETIC? YES . THYROID DISORDER NO . OTHER: DO YOU NEED ANY PRESCRIPTIONS? NO . IF YES, PLEASE LIST: ____ . ANY NEW PROBLEMS WITH YOUR MEDICATIONS? NO . WHEN DID YOU LAST EAT? ____ . WHEN DID YOU LAST DRINK? ____ . WHAT DID YOU LAST DRINK? ____ . NAME OF PERSON DRIVING YOU HOME? ____ . DO YOU HAVE ANY OTHER QUESTIONS OR CONCERNS NO . VITAL SIGNS WT 194.4 LBS, HT 66 IN, BMI 31.37 INDEX, BP 150/107 MM HG, HR 83 /MIN, RR 18 /MIN, TEMP 97.8 F, OXYGEN SAT % 96, SAFE IN ENV? (Y/N) YES, NA INITIALS MP 1150, REVIEWED BY: VISHNU. EXAMINATION GENERAL EXAMINATION: GENERAL APPEARANCE:NO ACUTE DISTRESS. PSYCHAFFECT FLAT. NECK:TRACHEA MIDLINE. NO CERVICAL OR SUPRACLAVICULAR LYMPHADENOPATHY NOTED. LUNGS:LUNG ELIAS ARE CLEAR TO AUSCULTATION BILATERALLY. GOOD MOVEMENT OF AIR. HEART:S1, S2 IN A REGULAR RATE AND RHYTHM. NO SIGNIFICANT MURMURS, RUBS OR GALLOPS NOTED. BACK:TENDERNESS AT MULTIPLE SITES INDICATIVE OF FIBROMYALGIA.TRIGGER POINTS ELICITED OVER THORACIC AND LUMBAR PARASPINALS.. ABDOMEN:SOFT, NON-TENDER/NON-DISTENDED, BOWEL SOUNDS PRESENT. ASSESSMENTS LOW BACK PAIN AT MULTIPLE SITES - M54.5 (PRIMARY) TREATMENT LOW BACK PAIN AT MULTIPLE SITES NOTES: CONTINUE CURRENT PAIN MEDICATION PER PRIMARY CARE OR OB.PRIMARY CARE NEEDS TO CONTACT ME TO DISCIUSS NARCOTIC MEDICATION MANAGEMENT. PROCEDURE CODES FA211 ESTABILISHED PATIENT [facility] CHARGE DISPOSITION & COMMUNICATION FOLLOW UP 6 WEEKS ELECTRONICALLY SIGNED BY EMILIE BISWAS ON 12/10/2016 AT 08:34 AM EDT DISCLAIMER : THIS IS A VISIT SUMMARY EXTRACTED FROM THE [employer] CHART. IT IS NOT A COPY OF THE [employer] PROGRESS NOTE. TAMI
== END | disposition home or self-care (01) ==
LOC: M PAIN 11:20
PROVIDERS: ATTEND Nurse Practitioner Family
DX: G89.29 Other chronic pain (principal); M51.36 Other intervertebral disc degeneration, lumbar region; M48.00 Spinal stenosis, site unspecified; G43.909 Migraine, unspecified, not intractable, without status migrainosus; J30.9 Allergic rhinitis, unspecified; F33.9 Major depressive disorder, recurrent, unspecified; E11.9 Type 2 diabetes mellitus without complications; M79.7 Fibromyalgia; F41.9 Anxiety disorder, unspecified; M06.9 Rheumatoid arthritis, unspecified; F43.10 Post-traumatic stress disorder, unspecified; Z79.899 Other long term (current) drug therapy; Z88.1 Allergy status to other antibiotic agents; Z88.8 Allergy status to other drugs, medicaments and biological substances

== ENCOUNTER 2016-11-13 23:11 | Emergency (ER) | payer OTHER ==
[~2016-11-13] VITALS: Ht 167.6 cm; Wt 91.7 kg
[~2016-11-13 23:11] MED LIST changes: -HYDR-3713 PO; -NEUR600T PO; -NORC1TAB4 PO; -OXYC-517; -OXYC1TAB23 PO; -PANT40TA2 PO; -PROM50TA4 PO; -PROT1TAB2 PO; -ROBA500T PO; -SUCR1TAB56 PO; -ZOLO25TA PO
[2016-11-13] MEDS ORDERED: OXYC15TA76 PO (23:21)
[2016-11-14] MEDS ORDERED: NORCO, ANEXSIA 5/325MG TABLET (HYDROcodone/ACETAMINOPHEN) PO ONE (03:00)
[2016-11-14] MEDS ORDERED: OXYC-517 (03:04)
[2016-11-14 03:17] VITALS: BP 138/92
== END 2016-11-14 03:19 | disposition home or self-care (01) ==
LOC: M ED 23:11
DX: G89.29 Other chronic pain (principal); M54.9 Dorsalgia, unspecified; F17.200 Nicotine dependence, unspecified, uncomplicated; Z79.891 Long term (current) use of opiate analgesic; Z79.899 Other long term (current) drug therapy; Z88.6 Allergy status to analgesic agent; Z88.1 Allergy status to other antibiotic agents

== ENCOUNTER 2016-11-23 13:31 | Emergency (ER) | payer OTHER ==
[~2016-11-23] VITALS: Ht 167.6 cm; Wt 85.9 kg
[~2016-11-23 13:31] MED LIST changes: +OXYC-517
[2016-11-23] MEDS ORDERED: SUCR1TAB56 PO (13:55)
[2016-11-23] MEDS ORDERED: PANT40TA2 PO (13:55)
[2016-11-23] MEDS ORDERED: ONDANSETRON 4MG/2ML VIAL (J2405) IV ONE (15:30)
[2016-11-23] MEDS ORDERED: PANTOPRAZOLE SODIUM 40 MG in D5W MINI-BAG PLUS 50 ML IV SCH (15:30)
[2016-11-23] MEDS ORDERED: MORPHINE 4 MG/ML 1ML SYRINGE IV ONE ×2 (15:30→16:15)
[2016-11-23 15:47] LABS: CONTROL LINE UCG INT CTR LINE PRESENT
[2016-11-23 15:48] LABS: MEAN CORPUSCULAR HEMOGLOBIN 24.1 pg (27.0-33.0); MEAN CORPUSCULAR HGB CONC 31.3 g/dl (32.0-36.5); MEAN CORPUSCULAR VOLUME 77.1 fl (80.0-96.0); PLATELET COUNT, AUTOMATED 385 k/mm3 (150-450); WHITE BLOOD COUNT 8.1 K/mm3 (4.0-10.0)
[2016-11-23 15:49] LABS: BASO % 0.4 % (0.0-1.0); EOS # 0.4 K/mm3 (0.0-0.50); LARGE UNSTAINED CELL # 0.1 K/mm3 (0.0-0.4); LARGE UNSTAINED CELL % 1.5 % (0.0-4.0); LYMPH % 24.1 % (24.0-44.0); MONO # 0.3 K/mm3 (0.0-0.8); MONO % 3.7 % (0.0-5.0); NEUTROPHILS # 5.3 K/mm3 (1.8-7.7); NEUTROPHILS % 65.3 % (36.0-66.0)
[2016-11-23 15:56] LABS: INR 0.94
[2016-11-23] MEDS ORDERED: GASTROGRAFIN SOLUTION 30ML (Q9963) PO ONE (16:00)
[2016-11-23 16:05] LABS: CONTROL LINE HCG INT CTR LINE PRESENT
[2016-11-23 16:12] LABS: ALBUMIN 3.5 GM/DL (3.2-5.2); ALKALINE PHOSPHATASE 96 U/L (45-117); ALT/SGPT 16 U/L (12-78); AMYLASE 41 U/L (25-115); ANION GAP 6 MEQ/L (8-16); AST/SGOT 8 U/L (15-37); BILIRUBIN,DIRECT 0.1 MG/DL (0.0-0.2); BILIRUBIN,TOTAL 0.3 MG/DL (0.2-1.0); BLOOD UREA NITROGEN 13 MG/DL (7-18); CALCIUM LEVEL 8.7 MG/DL (8.5-10.1); CARBON DIOXIDE LEVEL 27 MEQ/L (21-32); CHLORIDE LEVEL 108 MEQ/L (98-107); CREATININE FOR GFR 0.95 MG/DL (0.55-1.02); GLOMERULAR FILTRATION RATE > 60.0 (>60); GLUCOSE, FASTING 128 MG/DL (70-105); POTASSIUM SERUM 3.8 MEQ/L (3.5-5.1); SODIUM LEVEL 141 MEQ/L (136-145); TOTAL PROTEIN 7.4 GM/DL (6.4-8.2)
[2016-11-23] MEDS ORDERED: GASTROGRAFIN SOLUTION 30ML PO ONE (16:30)
[2016-11-23] MEDS ORDERED: ISOVUE-370 76% 100ML VIAL (Q9967) As Ordered ONE (17:26)
[2016-11-23] MEDS ORDERED: fentaNYL 100 MCG/2 ML INJECTION (J3010) IV ONE (18:30)
--- NOTE | 2016-11-23 18:40 | REPUSA ---
CT angiogram of the chest Clinical statement: Chest pain and shortness of breath. Technique: Multiple axial CT images were obtained from the thoracic inlet through the upper abdomen a fter a bolus administration of nonionic intravenous contrast. Coronal and sagittal reconstructions we re also obtained. No comparison is available. Findings: The pulmonary arteries are well-opacified with contrast, with no intraluminal filling defec ts to suggest embolism. The thoracic aorta is unremarkable. Thyroid gland is within normal limits. Th ere is no thoracic lymphadenopathy. There are no pericardial or pleural effusions. The lungs are citlalli r. Limited imaging of the upper abdomen is unremarkable. There are no suspicious osseous lesions. Impression: Unremarkable CT examination of the chest. No evidence of pulmonary embolism.
--- NOTE | 2016-11-23 18:40 | REPUSA ---
CT of the abdomen and pelvis with contrast Clinical statement: Pain. Technique: Multiple axial CT images were obtained from the base of the lungs through the floor of the pelvis utilizing 5 mm axial slices after administration of oral and nonionic intravenous contrast. C oronal and sagittal reconstructions were also obtained. No comparison is available. Findings: Chest: The visualized lung bases are clear. Abdomen: The liver, spleen, pancreas, kidneys, and adrenal glands are unremarkable. The aorta is with in normal limits. There is no evidence of abdominal lymphadenopathy or ascites. Pelvis: The bowel is unremarkable, with no obstructive or inflammatory changes. The urinary bladder i s within normal limits. The other pelvic structures appear grossly intact. There is no evidence of pe lvic lymphadenopathy or ascites. Bones: There are no suspicious osseous abnormalities seen. Impression: Unremarkable CT examination of the abdomen and pelvis.
[2016-11-23] MEDS ORDERED: PROT1TAB2 PO (19:26)
[2016-11-23 19:45] VITALS: BP 144/92
== END 2016-11-23 19:46 | disposition left against medical advice (07) ==
LOC: M ED 13:31
DX: K27.3 Acute peptic ulcer, site unspecified, without hemorrhage or perforation (principal); R42 Dizziness and giddiness; R06.02 Shortness of breath; Z98.84 Bariatric surgery status; J45.909 Unspecified asthma, uncomplicated; M79.7 Fibromyalgia; F43.10 Post-traumatic stress disorder, unspecified; F41.9 Anxiety disorder, unspecified; D64.9 Anemia, unspecified; Z87.891 Personal history of nicotine dependence; Z79.899 Other long term (current) drug therapy
CPT/HCPCS: 71275; 74177; 80048; 80076; 81001; 82150; 83690; 84703; 85025; 85610; 85730; 87086; 96374; 96375; 96376; 99283; C9113; J2405; J3010; Q9963; Q9967

== ENCOUNTER → 2016-12-05 | Outpatient (REF) | payer OTHER ==
[~2016-12-05] MED LIST changes: +HYDR-3713 PO; +NEUR600T PO; +NORC1TAB4 PO; +OXYC1TAB23 PO; +PANT40TA2 PO; +PROM50TA4 PO; +PROT1TAB2 PO; +ROBA500T PO; +SUCR1TAB56 PO; +ZOLO25TA PO
[2016-12-05 19:23] LABS: BASO % 0.5 % (0.0-1.0); EOS # 0.9 K/mm3 (0.0-0.50); EOS % 9.6 % (0.0-3.0); LARGE UNSTAINED CELL # 0.2 K/mm3 (0.0-0.4); LARGE UNSTAINED CELL % 2.1 % (0.0-4.0); LYMPH # 2.6 K/mm3 (1.5-4.5); LYMPH % 25.8 % (24.0-44.0); MEAN CORPUSCULAR HGB CONC 31.2 g/dl (32.0-36.5); MEAN CORPUSCULAR VOLUME 77.1 fl (80.0-96.0); MONO # 0.6 K/mm3 (0.0-0.8); MONO % 5.9 % (0.0-5.0); NEUTROPHILS # 5.3 K/mm3 (1.8-7.7); PLATELET COUNT, AUTOMATED 346 k/mm3 (150-450); RED CELL DISTRIBUTION WIDTH 15.9 % (11.5-14.5); WHITE BLOOD COUNT 9.4 K/mm3 (4.0-10.0)
== END ==
LOC: M SFHCPLAZ 15:12
PROVIDERS: ATTEND Nurse Practitioner Family
DX: K92.1 Melena (principal)

== ENCOUNTER 2016-12-14 16:43 | Emergency (ER) | payer OTHER ==
[~2016-12-14] VITALS: Ht 167.6 cm; Wt 82.7 kg
[2016-12-14 16:43] VITALS: BP 137/90
[~2016-12-14 16:43] MED LIST changes: -HYDR-3713 PO; -NEUR600T PO; -NORC1TAB4 PO; -OXYC1TAB23 PO; -PROM50TA4 PO; -ROBA500T PO; -ZOLO25TA PO
[2016-12-14] MEDS ORDERED: PROM50TA4 PO (16:50)
[2016-12-14] MEDS ORDERED: ROBA500T PO (17:07)
[2016-12-14] MEDS ORDERED: HYDR-3713 PO (17:07)
== END 2016-12-14 17:16 | disposition home or self-care (01) ==
LOC: M ED 16:43
DX: M54.5 Low back pain (principal); G89.29 Other chronic pain; M51.9 Unspecified thoracic, thoracolumbar and lumbosacral intervertebral disc disorder; M48.00 Spinal stenosis, site unspecified; M79.7 Fibromyalgia; M06.9 Rheumatoid arthritis, unspecified; J45.909 Unspecified asthma, uncomplicated; K58.9 Irritable bowel syndrome, unspecified; G43.909 Migraine, unspecified, not intractable, without status migrainosus; Z98.84 Bariatric surgery status; F11.21 Opioid dependence, in remission; F41.9 Anxiety disorder, unspecified; F31.9 Bipolar disorder, unspecified; Z91.81 History of falling

== ENCOUNTER → 2016-12-16 | Outpatient (CLI) | payer OTHER ==
[~2016-12-16] MED LIST changes: +HYDR-3713 PO; +NEUR600T PO; +NORC1TAB4 PO; +OXYC1TAB23 PO; +PROM50TA4 PO; +ROBA500T PO; +ZOLO25TA PO
--- NOTE | 2016-12-17 01:20 | ECWPNPC ---
PATIENT NAME: ROBERT WU : 1980 GENDER: FEMALE VISIT DATE: 12/16/2016 DISCHARGE DATE: 12/16/16 1021 VISIT LOCKED DATE TIME: PHYSICIAN: SHIVANI WERNER RESOURCE: SHIVANI WERNER REASON FOR APPOINTMENT 1. BACK HISTORY OF PRESENT ILLNESS HISTORY OF PRESENT ILLNESS: HERE TO INITIATE NARCOTIC MEDICATION MANAGEMENT FOR CHRONIC GENERALIZED BACK PAIN.SHE DID NOT BRING IN HER PAIN MEDICATION.SHE WASNT AWARE THAT SHE HAD TO.WE ARE NORMA OVER NARCOTIC PAIN MEDICATION MANAGEMENT WITH THE UNDERSTATNDING AT INITIAL VISIT 6 WEEKS AGO THAT OUR GOAL WAS TO REDUCE AND POSSIBLY ELIMINATE DAILY OPIOD USE.[facility] AND [facility] IS A[facility] AND CONCURS WITH PLAN.INFORMED PATIENT I WOULD NOT BE ABLE TO ADVISE HER ON PAIN MEDICATION UNTIL I SEE MEDICATION.REVIEWED ISTOP.THIS IS SHOWING THAT SHE PICKED UP 180 TAB. OF OXYCODONE 5MG ON 11/24/16 WITH MDD6 SO SHE SHOULD HAVE #42 TAB LEFT TODAY.SHE VISITED ER 4 DAYS AGO AFTER FALL INJURY.REPORTED SEVERE INCREASE IN BACK PAIN.CT OF LOW BACK WAS NEGATIVE.SHE WAS GIVEN #12 TAB OF HYDROCODONE 5/325 WHICH SHE PICKED UP ON 12/14/16.WE HAVE OFFERD HER A F/U TODAY OR TOMMOROW TO EVALUATE HER MEDICATION AND TO ADVISE ON PLAN.SHE DID STATE SHE WAS LEAVING TO GO OUT OF STATE TOMMOROW DUE TO SICK RELATIVE.SHE DID SCHEDULE AN [address] WITH ME TOMMOROW.IF SHE ISNT SEEN OR IF SHE SHOWS UP WITHOUT RIGHT COUNT ON MEDICATIONS WE WOULD BE ADVISING ON NO NARCOTICS AND I WOULDNT PRESCRIBE ANY.SHE STATES SHE UNDERSTANDS THIS.RATING PAIN VAS 9/10.PAIN IS LOCATED OVER ENTIRE BACK.SHE APPEARS COMFORTABLE. PAIN THE PATIENT DESCRIBES THE PAIN... FALL RISK SCREENING: SCREENING :NO FALLS IN THE PAST YEAR CURRENT MEDICATIONS TAKING SUCRALFATE 1 GM/10ML SUSPENSION 10 ML ORALLY 30 MINS BEFORE EACH MEAL AND BEFORE BED TAKING PROTONIX 40 MG TABLET DELAYED RELEASE 1 TABLET ORALLY ONCE A DAY TAKING DICYCLOMINE HCL 20 MG TABLET 1 TABLET ORALLY FOUR TIMES A DAY NEEDED TAKING BUSPIRONE HCL 15 MG TABLET 1 TABLET ORALLY THREE TIMES DAILY, NOTES: [facility] TAKING BANOPHEN 50 MG CAPSULE 1 CAPSULE ORALLY EVERY 6 HOURS NEEDED, NOTES: [facility] TAKING SINGULAIR 10 MG TABLET 1 TABLET IN THE EVENING ORALLY ONCE A DAY TAKING GLUCOSE BLOOD - STRIP 1 STRIP IN VITRO TWICE A DAY E11.9 TAKING LANCETS 1 LANCET DX E11.9 TWICE A DAY TAKING FLUTICASONE PROPIONATE 50 MCG/ACT SUSPENSION 1 SPRAY IN EACH NOSTRIL NASALLY ONCE A DAY TAKING OXYCODONE HCL 5 MG TABLET 2 TABLETS ORALLY EVERY 8 HRS NEEDED MDD = 6 TAKING PROZAC 10 MG CAPSULE 1 CAPSULE IN THE MORNING ORALLY ONCE A DAY TAKING VENTOLIN HFA 108 (90 BASE) MCG/ACT AEROSOL SOLUTION 2 PUFFS NEEDED INHALATION EVERY 4 HRS TAKING PROMETHAZINE HCL 25 MG TABLET 1 TABLET NEEDED ORALLY EVERY 8 HOURS TAKING GABAPENTIN 300 MG CAPSULE 1 CAPSULE ORALLY THREE TIMES A DAY TAKING IMITREX STATDOSE REFILL 4 MG/0.5ML SOLUTION CARTRIDGE 0.5 ML NEEDED SUBCUTANEOUS TWICE A DAY TAKING ACETAMINOPHEN 325 MG TABLET 2 TABLETS NEEDED ORALLY EVERY 6 HRS MEDICATION LIST REVIEWED AND RECONCILED WITH THE PATIENT PAST MEDICAL HISTORY SPINAL STENOSIS DDD WITH CHRONIC BACK PAIN MIGRAINES ALLERGIC RHINNITIS DEPRESSION FIBROMYALGIA ANXIETY BIPOLAR D/O RA PTSD ALLERGIES BIAXIN: ANAPHYLAXIS: ALLERGY NSAIDS: GASTRIC BYPASS: SIDE EFFECTS SURGICAL HISTORY C SECTION BABYGIRL 01/25/2002 C SECTION BABY BOY 09/24/2005 TONSILLECTOMY 2012 ARTHROSCOPIC RIGHT KNEE SURGERY. 1999 GASTRIC BYPASS CHOLECYSTECTOMY 2017 HOSPITALIZATION/MAJOR DIAGNOSTIC PROCEDURE ED WITH GI BLEED SINCE GASTRIC BYPASS REVIEW OF SYSTEMS REVIEWED BY: PROVIDER: SHIVANI PHAN . CONSTITUTIONAL: ANY CHANGE IN YOUR MEDICAL CONDITION? NO . CHILLS NO . FEVER NO . INFECTION: DO YOU HAVE NEW INFECTIONS? NO . DO YOU HAVE HISTORY OF MRSA? NO . MUSCULOSKELETAL: ANY NEW PATTERNS OF PAIN OR NUMBNESS? NO . GASTROENTEROLOGY: ANY NEW CHANGE IN BOWEL CONTROL? NO . GENITOURINARY: ANY NEW CHANGE IN BLADDER CONTROL? NO . IS THERE A CHANCE YOU COULD BE ? NO . HEMATOLOGY/LYMPH: DO YOU TAKE ANY BLOOD THINNERS? (FOR EXAMPLE- COUMADIN, PLAVIX, AGGRENOX, PLATEL, PRADAXA, OR XARELTO) NO . WHEN WAS YOUR LAST DOSE? DATE: TIME: . NEUROLOGY: HAVE YOU FALLEN IN THE PAST 6 MONTHS? YES, THURSDAY, DID CT SCAN AT [facility] - ALL CAME BACK GOOD /THURSDAY ALL DAY PAIN AND PAIN IS MUCH WORSE.THURSDAY WENT TO [facility] ER. TAILBONE EVEN NORMAL SITTING HURTS . ANY NEW EXTREMITY NUMBNESS OR WEAKNESS? NO . CARDIOLOGY: DO YOU HAVE A PACEMAKER OR DEFIBRILLATOR? NO . RESPIRATORY: HAVE YOU BEEN SICK IN THE PAST WEEK? NO . FEVER NO . FLU LIKE SYMPTOMS? NO . COUGH NO . INTEGUMENTARY: DO YOU HAVE ANY RASHES OR OPEN SORES? NO . ALLERGIC/IMMUNO: ARE YOU ALLERGIC TO SHELLFISH OR IV DYE? NO . ANY NEW ALLERGIES? NO . PSYCHIATRIC: DO YOU HAVE THOUGHTS OF HURTING YOURSELF OR SOMEONE ELSE? NO . ARE YOU ABUSED, NEGLECTED, OR IN AN UNSAFE ENVIRONMENT? NO . ENDOCRINOLOGY: ARE YOU DIABETIC? NO . OTHER: DO YOU NEED ANY PRESCRIPTIONS? YES . IF YES, PLEASE LIST: OXYCODONE . ANY NEW PROBLEMS WITH YOUR MEDICATIONS? NO . WHEN DID YOU LAST EAT? ____ . WHEN DID YOU LAST DRINK? ____ . WHAT DID YOU LAST DRINK? ____ . NAME OF PERSON DRIVING YOU HOME? ____ . DO YOU HAVE ANY OTHER QUESTIONS OR CONCERNS NO . VITAL SIGNS WT 186 LBS, HT 66 IN, BMI 30.02 INDEX, BP 163/96 MM HG, HR 86 /MIN, RR 18 /MIN, TEMP 98.2 F, OXYGEN SAT % 98%, NA INITIALS SC 10:03. EXAMINATION GENERAL EXAMINATION: GENERAL APPEARANCE:NO ACUTE DISTRESS. PSYCHAFFECT FLAT. NECK:TRACHEA MIDLINE. NO CERVICAL OR SUPRACLAVICULAR LYMPHADENOPATHY NOTED. LUNGS:LUNG ELIAS ARE CLEAR TO AUSCULTATION BILATERALLY. GOOD MOVEMENT OF AIR. HEART:S1, S2 IN A REGULAR RATE AND RHYTHM. NO SIGNIFICANT MURMURS, RUBS OR GALLOPS NOTED. BACK:TENDERNESS AT MULTIPLE SITES INDICATIVE OF FIBROMYALGIA.TRIGGER POINTS ELICITED OVER THORACIC AND LUMBAR PARASPINALS.REPORTING PARATHESIA AND WEAKNESS OVER RIGHT LEG WITH LIGHT TOUCH. ASSESSMENTS LOW BACK PAIN AT MULTIPLE SITES - M54.5 (PRIMARY) TREATMENT LOW BACK PAIN AT MULTIPLE SITES NOTES: MUST PRESENT WITH PERCOCET AND HYDROCODONE TODAY, OR THURSDAY. PROCEDURE CODES FA211 ESTABILISHED PATIENT [facility] CHARGE DISPOSITION & COMMUNICATION FOLLOW UP 1- 3 DAYS MEDICATION CHECK/SQUEEZE IN ELECTRONICALLY SIGNED BY EMILIE BISWAS ON 12/16/2016 AT 01:38 PM EDT DISCLAIMER : THIS IS A VISIT SUMMARY [facility]ED FROM [facility] CH[facility]. IT IS NOT A COPY OF THE [employer] PROGRESS NOTE. TAMI
== END | disposition home or self-care (01) ==
LOC: M PAIN 09:45
PROVIDERS: ATTEND Nurse Practitioner Family
DX: G89.29 Other chronic pain (principal); M48.00 Spinal stenosis, site unspecified; M51.9 Unspecified thoracic, thoracolumbar and lumbosacral intervertebral disc disorder; G43.909 Migraine, unspecified, not intractable, without status migrainosus; J30.9 Allergic rhinitis, unspecified; F33.9 Major depressive disorder, recurrent, unspecified; M79.7 Fibromyalgia; F41.9 Anxiety disorder, unspecified; M06.9 Rheumatoid arthritis, unspecified; F43.10 Post-traumatic stress disorder, unspecified; E11.9 Type 2 diabetes mellitus without complications; Z79.899 Other long term (current) drug therapy; Z88.1 Allergy status to other antibiotic agents; Z88.8 Allergy status to other drugs, medicaments and biological substances; Z98.84 Bariatric surgery status

== ENCOUNTER → 2016-12-17 | Outpatient (CLI) | payer OTHER ==
--- NOTE | 2016-12-28 23:19 | ECWPNPC ---
PATIENT NAME: ROBERT WU : 1980 GENDER: FEMALE VISIT DATE: 12/17/2016 DISCHARGE DATE: 12/17/16928 VISIT LOCKED DATE TIME: PHYSICIAN: SHIVANI WERNER RESOURCE: SHIVANI WERNER REASON FOR APPOINTMENT 1. MEDS, PER SHIVANI 1-3 DAYS HISTORY OF PRESENT ILLNESS FALL RISK SCREENING: HERE FOR ONE DAY F/U AND MEDICINE MANAGEMENT FOR NARCOTIC PILL COUNT.SHE DID NOT BRING ANY MEDICATION IN AND STATES SHE DIDNT HAVE ANY.AFTER REVIEW OF ISTOP PATIENT HAS RECIEVED #[id number] NARCOTIC PAIN PILLS FROM 4 DIFFERENT PROVIDERS OVER THE PAST 45 DAYS.PATIENT ADMITS TO OVERTAKING.ALSO SHE IS NOT HAVING WITHDRAWAL SYMPTOMS.RAJWINDER INFORMED HER THAT I DID NOT FEEL THAT NARCOTIC PAIN MEDICATION SHOULD BE PRESCRIBED FOR HER BY ANY PROVIDER AND THAT THIS CLINIC WOULD ADVISE HER PRIMARY CARE PROVIDER OF THE ABOVE SITUATION.RAJWINDER OFFERED HER NON NARCOTIC MEDICATION AND OTHER TREATMENT OPTIONS TO INCLUDE PT AND INJECTIONS BUT SHE TELLS ME SHE HAS TRIED ALL OF THESE OPTIONS AND THEY DIDNT HELP.SHE WAS OFFERED ADDICTION SERVICES AND SHE DECLINED. SCREENING :NO FALLS IN THE PAST YEAR PAIN SCREENING: PATIENT HAS A COMPLAINT OF ACUTE OR CHRONIC PAIN :YES CURRENT MEDICATIONS TAKING SUCRALFATE 1 GM/10ML SUSPENSION 10 ML ORALLY 30 MINS BEFORE EACH MEAL AND BEFORE BED TAKING PROTONIX 40 MG TABLET DELAYED RELEASE 1 TABLET ORALLY ONCE A DAY TAKING DICYCLOMINE HCL 20 MG TABLET 1 TABLET ORALLY FOUR TIMES A DAY NEEDED TAKING BANOPHEN 50 MG CAPSULE 1 CAPSULE ORALLY EVERY 6 HOURS NEEDED, NOTES: [facility] TAKING SINGULAIR 10 MG TABLET 1 TABLET IN THE EVENING ORALLY ONCE A DAY TAKING GLUCOSE BLOOD - STRIP 1 STRIP IN VITRO TWICE A DAY E11.9 TAKING LANCETS 1 LANCET DX E11.9 TWICE A DAY TAKING FLUTICASONE PROPIONATE 50 MCG/ACT SUSPENSION 1 SPRAY IN EACH NOSTRIL NASALLY ONCE A DAY TAKING OXYCODONE HCL 5 MG TABLET 2 TABLETS ORALLY EVERY 8 HRS NEEDED MDD = 6 TAKING VENTOLIN HFA 108 (90 BASE) MCG/ACT AEROSOL SOLUTION 2 PUFFS NEEDED INHALATION EVERY 4 HRS TAKING PROMETHAZINE HCL 25 MG TABLET 1 TABLET NEEDED ORALLY EVERY 8 HOURS TAKING GABAPENTIN 300 MG CAPSULE 1 CAPSULE ORALLY THREE TIMES A DAY TAKING IMITREX STATDOSE REFILL 4 MG/0.5ML SOLUTION CARTRIDGE 0.5 ML NEEDED SUBCUTANEOUS TWICE A DAY TAKING ACETAMINOPHEN 325 MG TABLET 2 TABLETS NEEDED ORALLY EVERY 6 HRS TAKING ROBAXIN 500 MG TABLET 1 TABLETS ORALLY EVERY 6 HRS PRN TAKING ZOLOFT 25 MG TABLET 1 TABLET ORALLY ONCE A DAY TAKING HYDROCODONE-ACETAMINOPHEN 5-325 MG TABLET 1 TABLET NEEDED ORALLY EVERY 6 HRS NOT-TAKING BUSPIRONE HCL 15 MG TABLET 1 TABLET ORALLY THREE TIMES DAILY, NOTES: [facility] NOT-TAKING PROZAC 10 MG CAPSULE 1 CAPSULE IN THE MORNING ORALLY ONCE A DAY MEDICATION LIST REVIEWED AND RECONCILED WITH THE PATIENT PAST MEDICAL HISTORY SPINAL STENOSIS DDD WITH CHRONIC BACK PAIN MIGRAINES ALLERGIC RHINNITIS DEPRESSION FIBROMYALGIA ANXIETY BIPOLAR D/O RA PTSD ALLERGIES BIAXIN: ANAPHYLAXIS: ALLERGY NSAIDS: GASTRIC BYPASS: SIDE EFFECTS SURGICAL HISTORY C SECTION BABYGIRL 01/25/2002 C SECTION BABY BOY 09/24/2005 TONSILLECTOMY 2012 ARTHROSCOPIC RIGHT KNEE SURGERY. 1999 GASTRIC BYPASS CHOLECYSTECTOMY 2017 HOSPITALIZATION/MAJOR DIAGNOSTIC PROCEDURE ED WITH GI BLEED SINCE GASTRIC BYPASS REVIEW OF SYSTEMS REVIEWED BY: PROVIDER: SHIVANI PHAN . CONSTITUTIONAL: ANY CHANGE IN YOUR MEDICAL CONDITION? NO . CHILLS NO . FEVER NO . INFECTION: DO YOU HAVE NEW INFECTIONS? NO . DO YOU HAVE HISTORY OF MRSA? NO . MUSCULOSKELETAL: ANY NEW PATTERNS OF PAIN OR NUMBNESS? YES, LOW BACK IS WORSE AND THORACIC AND RIGHT NECK PAIN . SYTEMIC LUPUS NO . GASTROENTEROLOGY: ANY NEW CHANGE IN BOWEL CONTROL? NO . BARRETTS ESOPHAGUS NO . CIRRHOSIS NO . HEPATITIS NO . LIVER FAILURE NO . ACID REFLUX NO . UNEXPLAINED WEIGHT LOSS NO . GENITOURINARY: ANY NEW CHANGE IN BLADDER CONTROL? NO . IS THERE A CHANCE YOU COULD BE ? NO . HEMATOLOGY/LYMPH: DO YOU TAKE ANY BLOOD THINNERS? (FOR EXAMPLE- COUMADIN, PLAVIX, AGGRENOX, PLATEL, PRADAXA, OR XARELTO) NO . WHEN WAS YOUR LAST DOSE? DATE: TIME: . LOW PLATELET COUNT NO . SICKLE CELL DISEASE NO . VON WILLIEBRANDS NO . FACTOR V LEIDEN NO . THALLASEMIA NO . ANEMIA NO . EASY BRUISING NO . NEUROLOGY: HAVE YOU FALLEN IN THE PAST 6 MONTHS? YES, SLIPPED ON PUDDLE OF WATER . ANY NEW EXTREMITY NUMBNESS OR WEAKNESS? NO . HEAD INJURY NO . DEMENTIA NO . CEREBRAL PALSY NO . MULTIPLE SCLEROSIS NO . DIZZINESS NO . HEADACHE NO . STROKES NO . VERTIGO NO . CARDIOLOGY: DO YOU HAVE A PACEMAKER OR DEFIBRILLATOR? NO . ANGINA NO . HEART ATTACK NO . HEART SURGERY NO . CONGESTIVE HEART FAILURE/FLUID OVERLOAD NO . CHEST PAIN NO . HIGH BLOOD PRESSURE NO . IRREGULAR HEART BEAT NO . RESPIRATORY: HAVE YOU BEEN SICK IN THE PAST WEEK? NO . FEVER NO . FLU LIKE SYMPTOMS? NO . CPAP NO . BYPAP NO . ASTHMA NO . EMPHYSEMA NO . CHRONIC LUNG DISEASES NO . SHORTNESS OF BREATH ON EXERTION NO . COUGH NO . SNORING NO . INTEGUMENTARY: DO YOU HAVE ANY RASHES OR OPEN SORES? NO . ALLERGIC/IMMUNO: ARE YOU ALLERGIC TO SHELLFISH OR IV DYE? NO . ANY NEW ALLERGIES? NO . PSYCHIATRIC: DO YOU HAVE THOUGHTS OF HURTING YOURSELF OR SOMEONE ELSE? NO . ARE YOU ABUSED, NEGLECTED, OR IN AN UNSAFE ENVIRONMENT? NO . ENDOCRINOLOGY: ARE YOU DIABETIC? NO . THYROID DISORDER NO . OTHER: DO YOU NEED ANY PRESCRIPTIONS? YES, OXYCODONE . IF YES, PLEASE LIST: ____ . ANY NEW PROBLEMS WITH YOUR MEDICATIONS? NO . WHEN DID YOU LAST EAT? ____ . WHEN DID YOU LAST DRINK? ____ . WHAT DID YOU LAST DRINK? ____ . NAME OF PERSON DRIVING YOU HOME? ____ . DO YOU HAVE ANY OTHER QUESTIONS OR CONCERNS PT STATES THAT SHE IS A CURRENT SMOKER AND REFUSES ANY SMOKING CESSATION COUSELING AT THIS TIME. . VITAL SIGNS WT 186 LBS, HT 66 IN, BMI 30.02 INDEX, BP 136/100 MM HG, HR 87 /MIN, RR 18 /MIN, TEMP 96.9 F, OXYGEN SAT % 98%, NA INITIALS AW 0851, REVIEWED BY: MARY NURSE KNOW ABOUT BP. ASSESSMENTS LOW BACK PAIN AT MULTIPLE SITES - M54.5 (PRIMARY) CHRONIC PRESCRIPTION OPIATE USE - Z79.891 TREATMENT LOW BACK PAIN AT MULTIPLE SITES NOTES: PRESENT TO ER FOR WITHDRAWAL SYMPTOMS.URINE TOX TODAY. PROCEDURE CODES FA211 ESTABILISHED PATIENT [facility] FACILITY CHARGE DISPOSITION & COMMUNICATION FOLLOW UP 2WK SQUEEZE IN ELECTRONICALLY SIGNED BY EMILIE BISWAS ON 12/28/2016 AT 06:17 PM EDT DISCLAIMER : THIS IS A VISIT SUMMARY EXTRACTED FROM THE [employer] CHART. IT IS NOT A COPY OF THE [employer] PROGRESS NOTE. MTDD
== END ==
LOC: M PAIN 08:30
PROVIDERS: ATTEND Nurse Practitioner Family
DX: M54.5 Low back pain (principal); Z79.891 Long term (current) use of opiate analgesic; Z79.899 Other long term (current) drug therapy; Z79.01 Long term (current) use of anticoagulants

== ENCOUNTER 2016-12-18 17:43 | Emergency (ER) | payer OTHER ==
[~2016-12-18] VITALS: Ht 167.6 cm; Wt 84.1 kg
[~2016-12-18 17:43] MED LIST changes: -NEUR600T PO; -NORC1TAB4 PO; -OXYC1TAB23 PO; -ZOLO25TA PO
[2016-12-18] MEDS ORDERED: ZOLO25TA PO (18:02)
[2016-12-18] MEDS ORDERED: PERCOCET 5MG/325MG TAB PO ONE (18:45)
--- NOTE | 2016-12-18 19:16 | REP ---
Clinical: Trauma with lower back pain. Comparison: 08/08/2014 . Technique: AP, lateral, bilateral oblique, and coned-down views. Findings: Alignment is maintained. The vertebral bodies including transverse process and spinous processes are intact and there is no evidence for acute fracture / compression injury or subluxation. No evidence for spondylolysis or spondylolisthesis. Moderate degenerative disc osteophyte complexes are appreciated primarily involving the L1-2 level similar to prior examination. Impression: Moderate multilevel degenerative changes most pronounced at the L1-2 level. No acute fracture / compression injury or subluxation. Signed by Lauro Neal MD 12/18/2016 07:06 P
[2016-12-18] MEDS ORDERED: NORCO 5/325MG TABLET (BULK FOR ED) PO ONE (19:45)
[2016-12-18 20:01] VITALS: BP 115/75
== END 2016-12-18 20:03 | disposition home or self-care (01) ==
LOC: M ED 17:43
DX: M54.16 Radiculopathy, lumbar region (principal); M54.18 Radiculopathy, sacral and sacrococcygeal region; M54.31 Sciatica, right side; G43.909 Migraine, unspecified, not intractable, without status migrainosus; M06.9 Rheumatoid arthritis, unspecified; M79.7 Fibromyalgia; G47.30 Sleep apnea, unspecified; K58.9 Irritable bowel syndrome, unspecified; F31.9 Bipolar disorder, unspecified; M51.9 Unspecified thoracic, thoracolumbar and lumbosacral intervertebral disc disorder; Z98.84 Bariatric surgery status; F17.200 Nicotine dependence, unspecified, uncomplicated; Z79.899 Other long term (current) drug therapy; Z88.8 Allergy status to other drugs, medicaments and biological substances; Z88.6 Allergy status to analgesic agent

== ENCOUNTER 2016-12-22 15:47 | Emergency (ER) | payer OTHER ==
[~2016-12-22] VITALS: Ht 167.6 cm; Wt 82.7 kg
[~2016-12-22 15:47] MED LIST changes: +ZOLO25TA PO
[2016-12-22] MEDS ORDERED: methylPREDNISolone INJ 125 MG/2 ML VIAL (J2930) IM ONE (21:30)
[2016-12-22] MEDS ORDERED: PERCOCET 5MG/325MG TAB PO ONE (23:15)
[2016-12-23] MEDS ORDERED: MORPHINE 4 MG/ML 1ML SYRINGE IM ONE (01:30)
[2016-12-23] MEDS ORDERED: ONDANSETRON 4 MG ORAL DISINTEGRATING TAB (S0181) PO ONE (01:30)
[2016-12-23 01:51] VITALS: BP 133/79
--- NOTE | 2016-12-23 02:00 | REPUSA ---
CLINICAL HISTORY: Back pain.Trauma. Right leg numbness. TECHNIQUE: Fast spin echo T2 and spin echo T1 sequences were obtained in axial and sagittal planes. FINDINGS: Comparison is made to the prior exam performed on 06/24/2013. Straightening of the lumbar lordosis. Mild diffuse spondylotic changes. Findings are demonstrated by diffuse disc dehydration, disc space narrowing, osteophyte formation and degenerative endplate changes. The visualized osseous elements are intact with no evidence of fracture or spondylolisthesis. The mar row signals are within normal limits. There is preservation of normal lordotic curvature. The conus m edullaris and cauda equina are within normal limits. There is evidence of mild multilevel disc dehydration. Evaluation of individual levels reveals the following: At L5-S1, there is minimal diffuse bulge. Bilateral facet joint arthropathy. Canal and neural foramin a remain patent. At L4-L5, there is mild diffuse disc bulge. Superimposed broad-based central disc protrusion measurin g 4.5 mm in its largest anteroposterior dimension. Associated posterior central focal annular tear. T his is unchanged. Bilateral facet joint arthropathy and ligamentum flavum hypertrophy. Canal and neur al foramina remain patent. At L3-L4, there is no disk herniation or bulge. Canal and neural foramina remain patent. At L2-L3, there is no disk herniation or bulge. Canal and neural foramina remain patent. Bilateral fa cet joint arthropathy. At L1-L2, there is mild diffuse disc bulge. Unchanged right paracentral/posterolateral broad-based di sc protrusion measuring 5.3 mm in its largest anteroposterior dimension. Unchanged bilateral facet asrai int arthropathy. Canal remains patent.unchanged mild bilateral neural foramina narrowing. IMPRESSION: Spondylosis. Multilevel degenerative disc disease. Findings are more prominent at L1-L2 and L4-L5 levels. No acute traumatic pathology is seen. Thank you for your kind referral of this patient.
[2016-12-24] MEDS ORDERED: OXYC1TAB23 PO (18:33)
== END 2016-12-23 02:07 | disposition home or self-care (01) ==
LOC: M ED 15:47
DX: M51.36 Other intervertebral disc degeneration, lumbar region (principal); M54.16 Radiculopathy, lumbar region; M54.17 Radiculopathy, lumbosacral region; M54.41 Lumbago with sciatica, right side; M79.7 Fibromyalgia; J45.909 Unspecified asthma, uncomplicated; F41.9 Anxiety disorder, unspecified; F31.9 Bipolar disorder, unspecified; F43.10 Post-traumatic stress disorder, unspecified; K58.9 Irritable bowel syndrome, unspecified; F17.210 Nicotine dependence, cigarettes, uncomplicated; Z79.899 Other long term (current) drug therapy; Z88.1 Allergy status to other antibiotic agents; Z88.8 Allergy status to other drugs, medicaments and biological substances; Z98.0 Intestinal bypass and anastomosis status
CPT/HCPCS: 72148; 96372; 99282; J2930; J3360

== ENCOUNTER 2016-12-24 11:59 | Emergency (ER) | payer OTHER ==
[~2016-12-24] VITALS: Ht 167.6 cm; Wt 81.8 kg
[2016-12-24] MEDS: HYDROmorphone HCL 1 MG/ML SYRINGE (J1170) IV PRN ×2 (13:18→15:06)
[2016-12-24 13:36] LABS: CONTROL LINE HCG INT CTR LINE PRESENT
[2016-12-24 13:41] LABS: BASO % 0.4 % (0.0-1.0); EOS # 0.2 K/mm3 (0.0-0.50); EOS % 3.5 % (0.0-3.0); LARGE UNSTAINED CELL # 0.2 K/mm3 (0.0-0.4); LARGE UNSTAINED CELL % 2.7 % (0.0-4.0); LYMPH # 2.3 K/mm3 (1.5-4.5); LYMPH % 39.4 % (24.0-44.0); MEAN CORPUSCULAR HEMOGLOBIN 23.8 pg (27.0-33.0); MEAN CORPUSCULAR VOLUME 74.4 fl (80.0-96.0); MONO # 0.3 K/mm3 (0.0-0.8); MONO % 5.1 % (0.0-5.0); NEUTROPHILS # 2.9 K/mm3 (1.8-7.7); PLATELET COUNT, AUTOMATED 395 k/mm3 (150-450); WHITE BLOOD COUNT 5.9 K/mm3 (4.0-10.0)
[2016-12-24 13:54] LABS: ANION GAP 4 MEQ/L (8-16); BLOOD UREA NITROGEN 16 MG/DL (7-18); CALCIUM LEVEL 8.6 MG/DL (8.5-10.1); CARBON DIOXIDE LEVEL 29 MEQ/L (21-32); CHLORIDE LEVEL 109 MEQ/L (98-107); CREATININE FOR GFR 0.94 MG/DL (0.55-1.02); FREE T4 1.09 NG/DL (0.76-1.46); GLOMERULAR FILTRATION RATE > 60.0 (>60); GLUCOSE, FASTING 85 MG/DL (70-105); MAGNESIUM LEVEL 2.1 MG/DL (1.8-2.4); POTASSIUM SERUM 3.7 MEQ/L (3.5-5.1); SODIUM LEVEL 142 MEQ/L (136-145)
[2016-12-24 14:01] LABS: INR 0.94
--- NOTE | 2016-12-24 14:41 | REP ---
Right hip: Two views. History: Injury in a fall. Findings: AP and frog-leg views of the right hip demonstrate greater trochanteric spurring. Femoral head is smooth and rounded. Hip joint space is preserved. No fracture is seen. Periarticular soft tissues are unremarkable. Impression: Negative right hip radiographs. Signed by José Shaw MD 12/24/2016 05:24 P
--- NOTE | 2016-12-24 17:13 | REP ---
MRI lumbar spine without contrast: History: Injury in a fall. Comparison MR study is from December 23, 2016. Apparently the patient sustained a fall in the interval. Comparison MR study showed degenerative spondylosis. Technique: Sagittal and axial T1 and T2-weighted scans are acquired in the usual fashion with and without fat saturation. Sequences include spin echo, turbo spin-echo, and STIR imaging sequences. MRI findings: There is straightening of the normal lumbar lordosis. No fracture or collapse is seen. Inversion recovery images show no evidence of ligament disruption or periosseous edema. Conus medullaris is normal in position and appearance at T12-L1 as before. The L4-5 disc is narrowed and there is a broad-based disc bulge and L4-5 indenting the ventral margin of the thecal sac unchanged from the study done the previous day. L1-2 there is degenerative narrowing of the disc. A small to moderate right paracentral focal disc protrusion is seen at the L1-2 which it is also unchanged from the study done 1 day earlier. No neural foraminal narrowing is seen. No central canal stenosis is noted. Impression: Stable MRI findings. No traumatic abnormality. Right paracentral L1-2 disc protrusion. Signed by José Shaw MD 12/24/2016 06:41 P
--- NOTE | 2016-12-24 17:13 | REP ---
MRI cervical spine without contrast: History: Injury in a fall. Comparison MRI study is from August 31, 2015. Technique: Sagittal and axial T1 and T2-weighted scans are acquired in the usual fashion with and without fat saturation. Sequences include spin echo, turbo spin-echo, and STIR imaging sequences. MRI findings: There is straightening of the normal cervical lordosis. A levoconvex curve is visible on coronal health and safety inspector image. Cervical vertebral body heights are preserved. Alignment is otherwise normal. Cortical and medullary bone signal intensity are normal. There is disc space narrowing and decreased signal intensity at each cervical level from C3-4 through C6-7. This is most pronounced at C5-6. Axial and sagittal images at C5-6 demonstrate a broad-based left paracentral disc protrusion effacing the ventral subarachnoid space and flattening the ventral margin of the cord on axial images. This is quite similar to the appearance on August 31, 2015. There is minimal uncovertebral spurring visible. At C4-5, there is mild central disc bulging, which is unchanged. At C3-4, there is mild diffuse disc bulging and right-sided uncovertebral spurring is seen at C3-4 producing mild neural foraminal encroachment. This is unchanged. The other disc levels remain unremarkable. Cervical cord is normal in coarse, caliber and signal intensity. Impression: Mild degenerative spondylosis changes C3-4 through C5-6. Left paracentral disc protrusion C5-6, unchanged from August 2015 prior MRI study. No post traumatic abnormality. Signed by José Shaw MD 12/24/2016 06:41 P
[2016-12-24] MEDS ORDERED: PERCOCET 5MG/325MG TAB PO ONE (17:45)
[2016-12-24] MEDS ORDERED: OXYC1TAB23 PO (18:33)
[2016-12-24 19:18] VITALS: BP 149/87
== END 2016-12-24 18:54 | disposition home or self-care (01) ==
LOC: M ED 11:59
DX: M50.30 Other cervical disc degeneration, unspecified cervical region (principal); M51.36 Other intervertebral disc degeneration, lumbar region; M54.30 Sciatica, unspecified side; M48.00 Spinal stenosis, site unspecified; F43.10 Post-traumatic stress disorder, unspecified; F31.9 Bipolar disorder, unspecified; F17.210 Nicotine dependence, cigarettes, uncomplicated; Z79.899 Other long term (current) drug therapy; Z88.1 Allergy status to other antibiotic agents; Z88.8 Allergy status to other drugs, medicaments and biological substances; Z98.0 Intestinal bypass and anastomosis status
CPT/HCPCS: 72141; 72148; 73502; 80048; 83605; 83735; 84439; 84443; 84703; 85025; 85610; 85730; 90471; 96374; 96376; 99284; J1170

== ENCOUNTER 2017-01-17 10:24 | Emergency (ER) | payer OTHER ==
[~2017-01-17] VITALS: Ht 167.6 cm; Wt 81.8 kg
[~2017-01-17 10:24] MED LIST changes: +OXYC1TAB23 PO
[2017-01-17] MEDS ORDERED: METHOCARBAMOL 500 MG TAB PO ONE (12:00)
[2017-01-17] MEDS ORDERED: predniSONE 20 MG TAB PO ONE (12:00)
[2017-01-17] MEDS ORDERED: KETOROLAC 60 MG/2 ML VIAL (J1885) IM ONE (12:00)
[2017-01-17] MEDS ORDERED: ROBA500T PO (12:40)
[2017-01-17] MEDS ORDERED: PRED20TA PO (12:40)
[2017-01-17] MEDS ORDERED: PERCOCET 5MG/325MG TAB PO ONE (12:45)
[2017-01-17 12:53] VITALS: BP 140/93
== END 2017-01-17 12:57 | disposition home or self-care (01) ==
LOC: M ED 10:24
DX: Z76.5 Malingerer [conscious simulation] (principal); M54.9 Dorsalgia, unspecified; G89.29 Other chronic pain; J45.909 Unspecified asthma, uncomplicated; K58.9 Irritable bowel syndrome, unspecified; F41.9 Anxiety disorder, unspecified; F31.9 Bipolar disorder, unspecified; F43.10 Post-traumatic stress disorder, unspecified; M05.9 Rheumatoid arthritis with rheumatoid factor, unspecified; M79.7 Fibromyalgia; F17.210 Nicotine dependence, cigarettes, uncomplicated; Z98.0 Intestinal bypass and anastomosis status; Z98.890 Other specified postprocedural states; Z88.1 Allergy status to other antibiotic agents
CPT/HCPCS: 96372; 99282; J1885

== ENCOUNTER 2017-01-21 13:18 | Emergency (ER) | payer OTHER ==
[~2017-01-21] VITALS: Ht 167.6 cm; Wt 84.0 kg
--- NOTE | 2017-01-21 16:34 | REP ---
MRI LUMBAR SPINE WITHOUT CONTRAST: HISTORY: Back pain. COMPARISON: 12/31/2016 Decreased signal intensity on T2-weighted images is present in the L1-2 and L4-5 intervertebral discs. The discs are decreased in height. These findings are consistent with disc degeneration. A diffuse disc bulge and small disc extrusion central and eccentric to the right are present at the L1-2 level. There is superior migration of disc material. There is minimal compression of the thecal sac. The L1 nerves exit the neural foramina without compression. There is no disc bulge or herniation at the L2-3, L3-4 and L5-S1 levels. The nerves exit the neural foramina without compression. A diffuse disc bulge is present at the L4-5 level. There is minimal compression of the thecal sac. The L4 nerves exit the neural foramina without compression. The conus medullaris is normal in appearance terminating at the level of the L1-2 intervertebral disc. Normal signal intensity is present in the lumbar vertebral bodies. IMPRESSION: 1. Diffuse disc bulge and small disc extrusion at the L1-2 level with minimal thecal sac compression. 2. Diffuse disc bulge at the L4-5 level with minimal thecal sac compression. There is no change compared to the previous study. Signed by Leonel Lara MD 01/21/2017 04:43 P
[2017-01-21] MEDS ORDERED: NORC1TAB4 PO (16:41)
[2017-01-21] MEDS ORDERED: ROBA500T PO (16:41)
[2017-01-21 17:16] VITALS: BP 131/88
== END 2017-01-21 17:15 | disposition home or self-care (01) ==
LOC: M ED 13:18
DX: M51.16 Intervertebral disc disorders with radiculopathy, lumbar region (principal); G89.29 Other chronic pain; F17.210 Nicotine dependence, cigarettes, uncomplicated

== ENCOUNTER 2017-01-25 19:29 | Emergency (ER) | payer OTHER ==
[~2017-01-25] VITALS: Ht 167.6 cm; Wt 84.1 kg
[~2017-01-25 19:29] MED LIST changes: +NORC1TAB4 PO
[2017-01-25 19:30] VITALS: BP 154/110
[2017-01-25] MEDS ORDERED: NEUR600T PO (20:57)
[2017-01-25] MEDS ORDERED: PERCOCET 5MG/325MG TAB PO ONE (21:00)
[2017-01-25] MEDS ORDERED: ROBA500T PO (21:33)
== END 2017-01-25 21:46 | disposition home or self-care (01) ==
LOC: M ED 19:29
DX: M54.16 Radiculopathy, lumbar region (principal); G89.29 Other chronic pain; J45.909 Unspecified asthma, uncomplicated; F99 Mental disorder, not otherwise specified; Z98.0 Intestinal bypass and anastomosis status; Z88.1 Allergy status to other antibiotic agents; Z88.8 Allergy status to other drugs, medicaments and biological substances

== ENCOUNTER 2017-02-22 21:01 | Emergency (ER) | payer OTHER ==
[~2017-02-22] VITALS: Ht 167.6 cm; Wt 84.1 kg
[~2017-02-22 21:01] MED LIST changes: +NEUR600T PO
[2017-02-22] MEDS ORDERED: PERCOCET 5MG/325MG TAB PO ONE (22:30)
[2017-02-22] MEDS ORDERED: PERC5TAB12 PO (23:23)
[2017-02-22] MEDS ORDERED: OXYCODONE/APAP 5MG/325MG(BULK FOR ED) 1 TABLET PO ONE (23:30)
[2017-02-22 23:36] VITALS: BP 145/93
--- NOTE | 2017-02-23 07:51 | REP ---
Clinical: Trauma. Technique: AP, lateral, bilateral oblique and sunrise views of the left knee. Comparison: 10/29/2012. Findings: Mild tricompartmental degenerative changes include subchondral sclerosis and joint space narrowing along with early cortical irregularity and spurring along the femoral condyles. Lateral and sunrise view suggests prepatellar soft tissue swelling. No acute fracture or. No effusion. Impression: Mild tricompartmental osteoarthritic degenerative changes. No acute fracture or dislocation. Signed by Lauro Neal MD 02/23/2017 07:43 A
--- NOTE | 2017-02-23 07:52 | REP ---
Clinical: Trauma. Technique: AP and lateral views of the left tibia / fibula. Findings: Tibia and fibula appear intact without acute fracture dislocation. Mild age-related degenerative changes at the knee and ankle joint noted. Lateral view demonstrates moderate calcaneal heal spur. No subcutaneous emphysema or radiodense foreign body. Impression: No acute fracture or dislocation. Signed by Lauro Neal MD 02/23/2017 07:44 A
== END 2017-02-23 00:03 | disposition home or self-care (01) ==
LOC: M ED 21:01
DX: M23.92 Unspecified internal derangement of left knee (principal); Z72.0 Tobacco use; X50.1XXA Overexertion from prolonged static or awkward postures, initial encounter; Y92.099 Unspecified place in other non-institutional residence as the place of occurrence of the external cause; Y93.01 Activity, walking, marching and hiking; Y99.9 Unspecified external cause status

== ENCOUNTER 2017-03-09 18:35 | Emergency (ER) | payer OTHER ==
[~2017-03-09] VITALS: Ht 165.1 cm; Wt 86.4 kg
[2017-03-09 18:35] VITALS: BP 138/91
[~2017-03-09 18:35] MED LIST changes: +PERC5TAB12 PO
[2017-03-09] MEDS ORDERED: duo neb (18:46)
[2017-03-10] MEDS ORDERED: SYMB16INH INH (10:52)
[2017-03-10] MEDS ORDERED: DULE200A IN (10:52)
[2017-03-10] MEDS ORDERED: TESS100C PO (10:52)
[2017-03-10] MEDS ORDERED: PRED20TA PO ×2 (10:52→12:43)
[2017-03-10] MEDS ORDERED: AVEL1TAB3 PO (12:43)
== END 2017-03-09 21:20 | disposition left against medical advice (07) ==
LOC: M ED 18:35
DX: Z53.21 Procedure and treatment not carried out due to patient leaving prior to being seen by health care provider (principal)

== ENCOUNTER 2017-03-10 10:34 | Emergency (ER) | payer OTHER ==
[~2017-03-10] VITALS: Ht 167.6 cm; Wt 86.4 kg
[~2017-03-10 10:34] MED LIST changes: +duo neb
[2017-03-10] MEDS ORDERED: SYMB16INH INH (10:52)
[2017-03-10] MEDS ORDERED: TESS100C PO (10:52)
[2017-03-10] MEDS ORDERED: PRED20TA PO ×2 (10:52→12:43)
[2017-03-10] MEDS ORDERED: DULE200A IN (10:52)
[2017-03-10] MEDS ORDERED: ALBUTEROL SULFATE 2.5 MG/0.5 ML INH NEB SOLN NEB ONE (12:00)
[2017-03-10] MEDS ORDERED: predniSONE 20 MG TAB PO ONE (12:00)
[2017-03-10] MEDS ORDERED: NORCO, ANEXSIA 5/325MG TABLET (HYDROcodone/ACETAMINOPHEN) PO ONE (12:30)
--- NOTE | 2017-03-10 12:41 | REP ---
PA AND LATERAL CHEST: 03/10/2017 COMPARISON: 12/28/2014. CLINICAL HISTORY: Cough. Two views are provided. Lung cotton are adequately inflated. The lateral view shows some subtle patchy increased density anterior lung base and I suspect some patchy atelectasis may be present in the medial segment of the right middle lobe. No effusion or dense consolidation. Heart, mediastinal, hilar contours normal. Airway and aorta intact. No apical scarring or pneumothorax. The bony thorax without focal lesion. No free air. IMPRESSION: 1. Some minor patchy atelectasis or early infiltrate, medial segment right middle lobe without dense consolidation, effusion or other acute finding. Signed by Yomi To MD 03/10/2017 08:29 P
[2017-03-10] MEDS ORDERED: AVEL1TAB3 PO (12:43)
[2017-03-10] MEDS ORDERED: MOXIFLOXACIN 400 MG TAB PO ONE (12:45)
[2017-03-10 12:47] VITALS: BP 130/75
== END 2017-03-10 12:53 | disposition home or self-care (01) ==
LOC: M ED 10:34
DX: J45.901 Unspecified asthma with (acute) exacerbation (principal); J18.1 Lobar pneumonia, unspecified organism; F17.210 Nicotine dependence, cigarettes, uncomplicated; Z98.0 Intestinal bypass and anastomosis status

== ENCOUNTER → 2017-04-27 | Outpatient (CLI) | payer OTHER ==
[2017-04-27 10:56] LABS: HEMATOCRIT 32.5 % (36.0-47.0); HEMOGLOBIN 10.2 g/dl (12.0-16.0); MEAN CORPUSCULAR HEMOGLOBIN 22.9 pg (27.0-33.0); MEAN CORPUSCULAR HGB CONC 31.4 g/dl (32.0-36.5); MEAN CORPUSCULAR VOLUME 72.9 fl (80.0-96.0); PLATELET COUNT, AUTOMATED 379 10^3/uL (150-450); RED BLOOD COUNT 4.46 10^6/uL (4.00-5.40); RED CELL DISTRIBUTION WIDTH 16.3 % (11.5-14.5); WHITE BLOOD COUNT 6.9 10^3/uL (4.0-10.0)
[2017-04-27 11:33] LABS: ALBUMIN 3.7 GM/DL (3.2-5.2); ALBUMIN/GLOBULIN RATIO 1.19 (1.00-1.93); ALKALINE PHOSPHATASE 63 U/L (45-117); ALT/SGPT 16 U/L (12-78); ANION GAP 7 MEQ/L (8-16); AST/SGOT 12 U/L (7-37); BILIRUBIN,TOTAL 0.4 MG/DL (0.2-1.0); BLOOD UREA NITROGEN 13 MG/DL (7-18); CALCIUM LEVEL 8.8 MG/DL (8.5-10.1); CARBON DIOXIDE LEVEL 27 MEQ/L (21-32); CHLORIDE LEVEL 106 MEQ/L (98-107); CHOLESTEROL LEVEL 160 MG/DL (<200); CHOLESTEROL RISK RATIO 2.388 (<5); CREATININE FOR GFR 0.87 MG/DL (0.55-1.02); GLOMERULAR FILTRATION RATE > 60.0 (>60); GLUCOSE, FASTING 87 MG/DL (70-105); HDL CHOLESTEROL 67 MG/DL (>40); IRON (FE) 19 UG/DL (50-170); LDL CHOLESTEROL 76.8 MG/DL (<100); NON-HDL-C 93 MG/DL; PERCENT SATURATION 4.3 % (13.2-45.0); POTASSIUM SERUM 4.1 MEQ/L (3.5-5.1); SODIUM LEVEL 140 MEQ/L (136-145); TOTAL IRON BINDING CAPACITY 445 UG/DL (250-450); TOTAL PROTEIN 6.8 GM/DL (6.4-8.2); TRIGLYCERIDES LEVEL 81 MG/DL (<150)
[2017-04-27 12:07] LABS: TOTAL 25(OH) VITAMIN D 14.4 NG/ML (30.0-100.0); VITAMIN B12 LEVEL 279 PG/ML (247-911)
== END ==
LOC: M LAB 10:11
DX: I10 Essential (primary) hypertension (principal); R53.83 Other fatigue
CPT/HCPCS: 71046

== ENCOUNTER 2017-07-21 17:53 | Emergency (ER) | payer OTHER ==
[2017-07-21] MEDS: MORPHINE 2 MG/ML 1ML SYRINGE (J2270) IM (19:30)
[2017-07-21] MEDS: KETOROLAC 60 MG/2 ML VIAL (J1885) IM (19:30)
[2017-07-21] MEDS: OXYCODONE/APAP 5MG/325MG(BULK FOR ED) 1 TABLET PO (20:45)
== END 2017-07-21 20:47 | disposition home or self-care (01) ==
LOC: M ED 17:53
DX: G89.29 Other chronic pain (principal); M54.5 Low back pain; M48.061 Spinal stenosis, lumbar region without neurogenic claudication; M51.26 Other intervertebral disc displacement, lumbar region; M51.37 Other intervertebral disc degeneration, lumbosacral region; M79.7 Fibromyalgia; R56.9 Unspecified convulsions; G43.909 Migraine, unspecified, not intractable, without status migrainosus; M06.9 Rheumatoid arthritis, unspecified; F41.9 Anxiety disorder, unspecified; F32.9 Major depressive disorder, single episode, unspecified; Z98.84 Bariatric surgery status; F17.200 Nicotine dependence, unspecified, uncomplicated; Z79.899 Other long term (current) drug therapy; Z88.6 Allergy status to analgesic agent; Z88.8 Allergy status to other drugs, medicaments and biological substances; Z88.1 Allergy status to other antibiotic agents
CPT/HCPCS: J1885

== ENCOUNTER 2017-09-28 01:46 | Emergency (ER) | payer OTHER ==
[2017-09-28] MEDS: predniSONE 20 MG TAB PO (04:30)
== END 2017-09-28 04:41 | disposition home or self-care (01) ==
LOC: M ED 01:46
DX: S46.812A Strain of other muscles, fascia and tendons at shoulder and upper arm level, left arm, initial encounter (principal); X50.9XXA Other and unspecified overexertion or strenuous movements or postures, initial encounter; Y92.9 Unspecified place or not applicable; Y93.89 Activity, other specified; Y99.9 Unspecified external cause status; G89.29 Other chronic pain; M54.9 Dorsalgia, unspecified; Z79.899 Other long term (current) drug therapy; Z88.1 Allergy status to other antibiotic agents; Z88.8 Allergy status to other drugs, medicaments and biological substances; Z88.6 Allergy status to analgesic agent
CPT/HCPCS: 99282

== ENCOUNTER 2017-10-26 22:14 | Emergency (ER) | payer OTHER | END 2017-10-27 00:52 | disposition left against medical advice (07) | LOC: M ED 22:14 | DX: I87.2 Venous insufficiency (chronic) (peripheral) (principal); R60.0 Localized edema; Z98.84 Bariatric surgery status; Z79.899 Other long term (current) drug therapy; Z88.6 Allergy status to analgesic agent; Z88.1 Allergy status to other antibiotic agents; Z88.8 Allergy status to other drugs, medicaments and biological substances; Z53.21 Procedure and treatment not carried out due to patient leaving prior to being seen by health care provider | CPT/HCPCS: 99281 ==

== ENCOUNTER 2017-10-28 08:13 | Emergency (ER) | payer OTHER ==
[2017-10-28 09:15] LABS: BASO % 0.4 % (0.0-1.0); EOS # 0.3 10^3/uL (0.0-0.50); EOS % 3.4 % (0.0-3.0); HEMATOCRIT 37.7 % (36.0-47.0); HEMOGLOBIN 12.6 g/dl (12.0-15.5); IMMATURE GRANULOCYTE % 0.4 % (0-3.0); LYMPH # 1.2 10^3/uL (1.5-4.5); LYMPH % 14.5 % (24.0-44.0); MEAN CORPUSCULAR HEMOGLOBIN 27.9 pg (27.0-33.0); MEAN CORPUSCULAR HGB CONC 33.4 g/dl (32.0-36.5); MEAN CORPUSCULAR VOLUME 83.4 fl (80.0-96.0); MONO # 0.5 10^3/uL (0.0-0.8); MONO % 6.1 % (0.0-5.0); NEUTROPHILS % 75.2 % (36.0-66.0); PLATELET COUNT, AUTOMATED 247 10^3/uL (150-450); RED BLOOD COUNT 4.52 10^6/uL (4.00-5.40); RED CELL DISTRIBUTION WIDTH 17.7 % (11.5-14.5)
[2017-10-28 09:19] LABS: APPEARANCE, URINE HAZY (CLEAR); BACTERIA, URINE AUTO NEGATIVE (NEGATIVE); BILIRUBIN, URINE AUTO NEGATIVE (NEGATIVE); BLOOD, URINE BLOOD NEGATIVE (NEGATIVE); COLOR, URINE YELLOW (YELLOW); GLUCOSE, URINE (UA) AUTO NEGATIVE (NEGATIVE); KETONE, URINE AUTO 2+ mg/dL (NEGATIVE); LEUKOCYTE ESTERASE, URINE AUTO NEGATIVE (NEGATIVE); MUCUS, URINE SMALL (NEGATIVE); NITRITE, URINE AUTO NEGATIVE (NEGATIVE); PROTEIN, URINE AUTO NEGATIVE (NEGATIVE); RBC, URINE AUTO 0 /HPF (0-3); SPECIFIC GRAVITY URINE AUTO 1.023 (1.002-1.035); SQUAMOUS EPITHELIAL CELL UR AU 2 /HPF (0-6); WBC, URINE AUTO 1 /HPF (0-3)
[2017-10-28 09:41] LABS: ALBUMIN 3.2 GM/DL (3.2-5.2); ALBUMIN/GLOBULIN RATIO 1.07 (1.00-1.93); ALKALINE PHOSPHATASE 70 U/L (45-117); ALT/SGPT 22 U/L (12-78); ANION GAP 8 MEQ/L (8-16); AST/SGOT 15 U/L (7-37); BILIRUBIN,TOTAL 0.3 MG/DL (0.2-1.0); BLOOD UREA NITROGEN 11 MG/DL (7-18); CALCIUM LEVEL 8.2 MG/DL (8.5-10.1); CARBON DIOXIDE LEVEL 23 MEQ/L (21-32); CHLORIDE LEVEL 112 MEQ/L (98-107); GLOMERULAR FILTRATION RATE > 60.0 (>60); GLUCOSE, FASTING 129 MG/DL (70-100); POTASSIUM SERUM 4.1 MEQ/L (3.5-5.1); SODIUM LEVEL 143 MEQ/L (136-145); TOTAL PROTEIN 6.2 GM/DL (6.4-8.2)
[2017-10-28 10:26] LABS: D-DIMER QUANT 371.9 ng/ml (<500)
[2017-10-28 10:54] LABS: THYROID STIMULATING HORMONE 0.293 uIU/ML (0.358-3.740)
[2017-10-28 11:20] LABS: FREE THYROXINE INDEX 2.2 % (1.3-4.8); T UPTAKE 32 % (30-39); THYROXINE (T4) 6.9 UG/DL (4.5-12.0)
[2017-10-28 11:55] LABS: SALICYLATE LEVEL 2.3 MG/DL (5.0-30.0)
[2017-10-28 12:27] LABS: NT-PRO BNP 331 PG/ML (<125)
[2017-10-28 13:13] LABS: C REACTIVE PROTEIN QUANTITATIV 0.38 MG/DL (0.00-0.30); RHEUMATOID FACTOR QUANT < 10.0 IU/ML (<15.0)
[2017-10-28 13:29] LABS: ERYTHROCYTE SEDIMENTATION RATE 12 mm/hr (0-20)
[2017-10-29 15:06] LABS: ANTINUCLEAR ANTIBODIES DIRECT Negative (Negative)
== END 2017-10-28 13:02 | disposition home or self-care (01) ==
LOC: M ED 08:13
DX: R60.9 Edema, unspecified (principal); J45.909 Unspecified asthma, uncomplicated; G43.909 Migraine, unspecified, not intractable, without status migrainosus; Z98.84 Bariatric surgery status; Z79.899 Other long term (current) drug therapy; Z79.3 Long term (current) use of hormonal contraceptives; Z88.1 Allergy status to other antibiotic agents; Z88.8 Allergy status to other drugs, medicaments and biological substances
CPT/HCPCS: 71046

== ENCOUNTER 2018-01-06 19:02 | Observation (INO) | payer OTHER ==
[2018-01-06] MEDS: diazePAM 5 MG TAB PO ×2 (19:53→20:45)
[2018-01-06] MEDS: KETOROLAC 60 MG/2 ML VIAL (J1885) IM (19:54)
[2018-01-06] MEDS: PERCOCET 5MG/325MG TAB PO ×2 (19:54→21:19)
[2018-01-06 20:28] LABS: APPEARANCE, URINE HAZY (CLEAR); BACTERIA, URINE AUTO 1+ (NEGATIVE); BILIRUBIN, URINE AUTO 1+ (NEGATIVE); BLOOD, URINE BLOOD NEGATIVE (NEGATIVE); COLOR, URINE AMBER (YELLOW); GLUCOSE, URINE (UA) AUTO NEGATIVE (NEGATIVE); KETONE, URINE AUTO TRACE mg/dL (NEGATIVE); LEUKOCYTE ESTERASE, URINE AUTO NEGATIVE (NEGATIVE); MUCUS, URINE SMALL (NEGATIVE); NITRITE, URINE AUTO NEGATIVE (NEGATIVE); PROTEIN, URINE AUTO 1+ mg/dL (NEGATIVE); RBC, URINE AUTO 4 /HPF (0-3); SPECIFIC GRAVITY URINE AUTO 1.035 (1.002-1.035); SQUAMOUS EPITHELIAL CELL UR AU 7 /HPF (0-6); WBC, URINE AUTO 3 /HPF (0-3)
[2018-01-06] MEDS: LIDOCAINE 5% (LIDODERM) PATCH TD (21:19)
[2018-01-06] MEDS: **NOTE PATIENT COMMENT** MISC XX (21:19)
[2018-01-07] MEDS: MORPHINE 4 MG/ML 1ML VIAL/SYRINGE (J2270) IV ×5 (00:01→23:03)
[2018-01-07] MEDS: methylPREDNISolone INJ 125 MG/2 ML VIAL (J2930) IV (00:01)
[2018-01-07] MEDS ORDERED: MORPHINE 10 MG/ML 1ML VIAL (J2270) IV (00:15)
[2018-01-07] MEDS ORDERED: ACETAMINOPHEN TAB 650MG DOSE (2X325MG) PO (00:15)
[2018-01-07] MEDS: FERROUS SULFATE 325MG TAB PO ×2 (08:37→21:44)
[2018-01-07] MEDS: SENOKOT S TAB PO ×2 (08:37→21:00)
[2018-01-07] MEDS: PROMETHAZINE 25 MG TAB PO ×3 (08:37→21:44)
[2018-01-07] MEDS: VITAMIN D 50,000 UNITS CAPSULE (ERGOCALCIFEROL 1.25MG) PO (08:37)
[2018-01-07] MEDS: MULTIVITAMINS CHILDREN'S CHEWABLE TABLET PO (08:37)
[2018-01-07] MEDS: PERCOCET 5MG/325MG TAB PO ×4 (08:38→21:46)
[2018-01-07] MEDS: ENOXAPARIN 40 MG/0.4 ML SYRINGE (J1650) SC (08:39)
[2018-01-07] MEDS: KETOROLAC 30 MG/ML VIAL (J1885) IV (13:10)
[2018-01-08] MEDS: PERCOCET 5MG/325MG TAB PO ×5 (03:08→21:42)
[2018-01-08] MEDS: MORPHINE 4 MG/ML 1ML VIAL/SYRINGE (J2270) IV (05:54)
[2018-01-08 07:48] LABS: ANION GAP 6 MEQ/L (8-16); BLOOD UREA NITROGEN 25 MG/DL (7-18); CARBON DIOXIDE LEVEL 27 MEQ/L (21-32); CHLORIDE LEVEL 111 MEQ/L (98-107); CREATININE FOR GFR 0.81 MG/DL (0.55-1.30); GLOMERULAR FILTRATION RATE > 60.0 (>60); GLUCOSE, FASTING 99 MG/DL (70-100); POTASSIUM SERUM 4.2 MEQ/L (3.5-5.1); SODIUM LEVEL 144 MEQ/L (136-145)
[2018-01-08] MEDS: SENOKOT S TAB PO ×2 (08:38→21:41)
[2018-01-08] MEDS: PROMETHAZINE 25 MG TAB PO ×3 (08:38→21:41)
[2018-01-08] MEDS: MULTIVITAMINS CHILDREN'S CHEWABLE TABLET PO (08:38)
[2018-01-08] MEDS: FERROUS SULFATE 325MG TAB PO ×2 (08:39→21:41)
[2018-01-08] MEDS: ENOXAPARIN 40 MG/0.4 ML SYRINGE (J1650) SC (08:39)
[2018-01-08 08:58] LABS: HEMATOCRIT 32.8 % (36.0-47.0); HEMOGLOBIN 10.6 g/dl (12.0-15.5); MEAN CORPUSCULAR HGB CONC 32.3 g/dl (32.0-36.5); MEAN CORPUSCULAR VOLUME 86.8 fl (80.0-96.0); PLATELET COUNT, AUTOMATED 282 10^3/uL (150-450); RED BLOOD COUNT 3.78 10^6/uL (4.00-5.40); RED CELL DISTRIBUTION WIDTH 16.7 % (11.5-14.5)
[2018-01-08] MEDS: CYCLOBENZAPRINE 5MG TABLET PO ×2 (14:57→21:41)
[2018-01-08] MEDS: **NOTE PATIENT COMMENT** MISC XX (21:42)
[2018-01-09] MEDS: PERCOCET 5MG/325MG TAB PO ×3 (02:15→12:51)
[2018-01-09] MEDS: CYCLOBENZAPRINE 5MG TABLET PO (06:10)
[2018-01-09] MEDS: MULTIVITAMINS CHILDREN'S CHEWABLE TABLET PO (08:43)
[2018-01-09] MEDS: FERROUS SULFATE 325MG TAB PO (08:43)
[2018-01-09] MEDS: SENOKOT S TAB PO (08:43)
[2018-01-09] MEDS: LIDOCAINE 5% (LIDODERM) PATCH TD (08:43)
[2018-01-09] MEDS: PROMETHAZINE 25 MG TAB PO (08:43)
[2018-01-09] MEDS: ENOXAPARIN 40 MG/0.4 ML SYRINGE (J1650) SC (08:44)
[2018-01-09 10:02] LABS: HEMATOCRIT 35.3 % (36.0-47.0); HEMOGLOBIN 11.4 g/dl (12.0-15.5); MEAN CORPUSCULAR HEMOGLOBIN 27.7 pg (27.0-33.0); MEAN CORPUSCULAR HGB CONC 32.3 g/dl (32.0-36.5); MEAN CORPUSCULAR VOLUME 85.7 fl (80.0-96.0); PLATELET COUNT, AUTOMATED 300 10^3/uL (150-450); RED BLOOD COUNT 4.12 10^6/uL (4.00-5.40); RED CELL DISTRIBUTION WIDTH 16.5 % (11.5-14.5); WHITE BLOOD COUNT 7.5 10^3/uL (4.0-10.0)
[2018-01-09 10:35] LABS: ANION GAP 3 MEQ/L (8-16); BLOOD UREA NITROGEN 21 MG/DL (7-18); C REACTIVE PROTEIN QUANTITATIV < 0.30 MG/DL (0.00-0.30); CARBON DIOXIDE LEVEL 30 MEQ/L (21-32); CHLORIDE LEVEL 108 MEQ/L (98-107); GLOMERULAR FILTRATION RATE > 60.0 (>60); GLUCOSE, FASTING 105 MG/DL (70-100); POTASSIUM SERUM 4.6 MEQ/L (3.5-5.1); SODIUM LEVEL 141 MEQ/L (136-145)
[2018-01-09 10:42] LABS: ERYTHROCYTE SEDIMENTATION RATE 4 mm/hr (0-20)
== END 2018-01-09 13:14 | disposition home or self-care (01) ==
LOC: M ED INP 01-07 00:07 → M ED 19:02 → M MS4PR 01-07 02:40 → M PED 01-07 18:05
DX: G89.29 Other chronic pain (principal); M54.5 Low back pain; M51.36 Other intervertebral disc degeneration, lumbar region; M50.30 Other cervical disc degeneration, unspecified cervical region; M25.511 Pain in right shoulder; J45.909 Unspecified asthma, uncomplicated; F32.9 Major depressive disorder, single episode, unspecified; Z98.84 Bariatric surgery status; F17.210 Nicotine dependence, cigarettes, uncomplicated; Z79.899 Other long term (current) drug therapy; Z88.1 Allergy status to other antibiotic agents; Z88.8 Allergy status to other drugs, medicaments and biological substances
CPT/HCPCS: J2270

== ENCOUNTER 2018-02-04 19:43 | Emergency (ER) | payer OTHER ==
[2018-02-04 20:48] LABS: INFLUENZA A AMPLIFICATION NEGATIVE (NEGATIVE); INFLUENZA B AMPLIFICATION NEGATIVE (NEGATIVE); RSV AMPLIFICATION NEGATIVE (NEGATIVE)
[2018-02-04] MEDS: KETOROLAC 60 MG/2 ML VIAL (J1885) IM (21:39)
[2018-02-04] MEDS: predniSONE 20 MG TAB PO (21:39)
[2018-02-04] MEDS: ONDANSETRON 4 MG ORAL DISINTEGRATING TAB (Q0162 PER 1MG) PO (21:40)
[2018-02-04] MEDS: IPRATROPIUM 0.5MG/ALBUTEROL 2.5MG INH SOL UD 3ML (DUONEB)(J7620) NEB ×2 (21:51→21:52)
[2018-02-04 22:01] LABS: BASO % 0.5 % (0.0-1.0); EOS # 0.4 10^3/uL (0.0-0.50); EOS % 4.4 % (0.0-3.0); HEMATOCRIT 39.9 % (36.0-47.0); HEMOGLOBIN 12.9 g/dl (12.0-15.5); IMMATURE GRANULOCYTE % 0.3 % (0-3.0); LYMPH # 2.6 10^3/uL (1.5-4.5); LYMPH % 29.4 % (24.0-44.0); MEAN CORPUSCULAR HEMOGLOBIN 28.2 pg (27.0-33.0); MEAN CORPUSCULAR HGB CONC 32.3 g/dl (32.0-36.5); MEAN CORPUSCULAR VOLUME 87.1 fl (80.0-96.0); MONO # 0.9 10^3/uL (0.0-0.8); MONO % 10.3 % (0.0-5.0); NEUTROPHILS # 4.8 10^3/uL (1.8-7.7); NEUTROPHILS % 55.1 % (36.0-66.0); PLATELET COUNT, AUTOMATED 353 10^3/uL (150-450); RED BLOOD COUNT 4.58 10^6/uL (4.00-5.40); RED CELL DISTRIBUTION WIDTH 16.8 % (11.5-14.5); WHITE BLOOD COUNT 8.8 10^3/uL (4.0-10.0)
[2018-02-04] MEDS: ACETAMINOPHEN 325 MG TAB PO (22:28)
[2018-02-04] MEDS: MAGIC MOUTHWASH SUSPENSION BTL SS (22:46)
[2018-02-05] MEDS: CORTISPORIN OTIC SOLN 10 ML BTL AS (00:13)
== END 2018-02-05 00:42 | disposition home or self-care (01) ==
LOC: M ED 02-05 00:42
DX: J45.901 Unspecified asthma with (acute) exacerbation (principal)
CPT/HCPCS: Q0162

== ENCOUNTER 2018-02-10 15:04 | Emergency (ER) | payer OTHER ==
[2018-02-10 15:57] LABS: BASO # 0.1 10^3/uL (0.0-0.2); BASO % 0.6 % (0.0-1.0); EOS # 0.4 10^3/uL (0.0-0.50); HEMATOCRIT 44.5 % (36.0-47.0); HEMOGLOBIN 14.7 g/dl (12.0-15.5); IMMATURE GRANULOCYTE % 0.4 % (0-3.0); LYMPH % 29.5 % (24.0-44.0); MEAN CORPUSCULAR HEMOGLOBIN 28.4 pg (27.0-33.0); MEAN CORPUSCULAR VOLUME 86.1 fl (80.0-96.0); MONO # 0.9 10^3/uL (0.0-0.8); MONO % 8.7 % (0.0-5.0); NEUTROPHILS # 5.7 10^3/uL (1.8-7.7); NEUTROPHILS % 56.8 % (36.0-66.0); PLATELET COUNT, AUTOMATED 426 10^3/uL (150-450); RED BLOOD COUNT 5.17 10^6/uL (4.00-5.40); RED CELL DISTRIBUTION WIDTH 16.6 % (11.5-14.5)
[2018-02-10] MEDS: NS 1,000 ML IV (16:00)
[2018-02-10 16:09] LABS: ALBUMIN 3.6 GM/DL (3.2-5.2); ALBUMIN/GLOBULIN RATIO 0.86 (1.00-1.93); ALKALINE PHOSPHATASE 82 U/L (45-117); ALT/SGPT 18 U/L (12-78); ANION GAP 4 MEQ/L (8-16); AST/SGOT 14 U/L (7-37); BILIRUBIN,DIRECT < 0.1 MG/DL (0.0-0.2); BILIRUBIN,TOTAL 0.2 MG/DL (0.2-1.0); BLOOD UREA NITROGEN 14 MG/DL (7-18); CALCIUM LEVEL 9.1 MG/DL (8.5-10.1); CARBON DIOXIDE LEVEL 30 MEQ/L (21-32); CHLORIDE LEVEL 104 MEQ/L (98-107); CREATININE FOR GFR 0.84 MG/DL (0.55-1.30); GLOMERULAR FILTRATION RATE > 60.0 (>60); GLUCOSE, FASTING 90 MG/DL (70-100); LIPASE 617 U/L (73-393); POTASSIUM SERUM 4.1 MEQ/L (3.5-5.1); SODIUM LEVEL 138 MEQ/L (136-145); TOTAL PROTEIN 7.8 GM/DL (6.4-8.2)
[2018-02-10 16:13] LABS: CONTROL LINE HCG INT CTR LINE PRESENT; HCG, SERUM QUALITATIVE NEGATIVE (NEGATIVE)
[2018-02-10] MEDS: ONDANSETRON 4MG/2ML VIAL (J2405) IV (16:15)
[2018-02-10] MEDS: MORPHINE 4 MG/ML 1ML VIAL/SYRINGE (J2270) IV ×3 (16:16→19:36)
[2018-02-10] MEDS: GASTROGRAFIN SOLUTION 30ML PO ×2 (17:15→17:23)
[2018-02-10] MEDS ORDERED: ISOVUE-370 76% 100ML VIAL (Q9967) As Ordered (18:17)
[2018-02-10] MEDS: GI COCKTAIL 50ML BTL(HYOSCYAMINE/MAALOX/LIDOCAINE VISCOUS)(1:3:1) PO (20:32)
[2018-02-10] MEDS: SUCRALFATE 1 GM TAB PO (20:32)
[2018-02-10] MEDS: OXYCODONE/APAP 5MG/325MG(BULK FOR ED) 1 TABLET PO (21:00)
== END 2018-02-10 21:11 | disposition home or self-care (01) ==
LOC: M ED 15:04
DX: K27.7 Chronic peptic ulcer, site unspecified, without hemorrhage or perforation (principal); Z98.84 Bariatric surgery status; M79.7 Fibromyalgia; M06.9 Rheumatoid arthritis, unspecified; G43.909 Migraine, unspecified, not intractable, without status migrainosus; F32.9 Major depressive disorder, single episode, unspecified; Z79.899 Other long term (current) drug therapy; Z88.8 Allergy status to other drugs, medicaments and biological substances; Z88.6 Allergy status to analgesic agent
CPT/HCPCS: J2270

== ENCOUNTER 2018-04-02 17:47 | Emergency (ER) | payer OTHER ==
[~2018-04-02] VITALS: Ht 167.6 cm; Wt 77.3 kg
[~2018-04-02 17:47] MED LIST changes: +12 H120T2 PO; +ACET-683 PO; -ACET1TAB17 PO; +ACET1TAB55 PO; +AVEL1TAB3 PO; +CARA1TAB6 PO; +CYCL5TAB PO; +DRIS50003 PO; +DULE200A IN; +FERR325T3 PO; +FLON1SPR NARES; -GABA-282 PO; -GABA-283 PO; +GABA-843 PO; +GABA-845 PO; +LASI20TA PO; +LIDO5TD TD; +METH1TAB40; +NEOM1SOL19 OTIC; +NEXP1IMP SC; +OXYC-517 PO; -PANT40TA2 PO; +PANT40TA3 PO; +PROM25TA; +PROM25TA PO; +VENTAER INH; -VITA1CAP40 PO; +VITA50005 PO; +VITACHTA PO
[2018-04-02] MEDS ORDERED: NS 1,000 ML IV ONE (18:45)
[2018-04-02] MEDS ORDERED: PANTOPRAZOLE 40MG INJ (PROTONIX) (C9113) IV ONE (18:45)
[2018-04-02] MEDS ORDERED: ONDANSETRON 4MG/2ML VIAL (J2405) IV ONE (18:45)
[2018-04-02 19:03] LABS: BASO % 0.4 % (0.0-1.0); EOS # 0.3 10^3/uL (0.0-0.50); EOS % 4.3 % (0.0-3.0); HEMATOCRIT 38.4 % (36.0-47.0); HEMOGLOBIN 12.5 g/dl (12.0-15.5); LYMPH # 2.4 10^3/uL (1.5-4.5); LYMPH % 31.3 % (24.0-44.0); MEAN CORPUSCULAR HEMOGLOBIN 27.8 pg (27.0-33.0); MEAN CORPUSCULAR HGB CONC 32.6 g/dl (32.0-36.5); MEAN CORPUSCULAR VOLUME 85.3 fl (80.0-96.0); MONO # 0.6 10^3/uL (0.0-0.8); MONO % 7.3 % (0.0-5.0); NEUTROPHILS # 4.3 10^3/uL (1.8-7.7); NEUTROPHILS % 56.4 % (36.0-66.0); PLATELET COUNT, AUTOMATED 304 10^3/uL (150-450); WHITE BLOOD COUNT 7.7 10^3/uL (4.0-10.0)
[2018-04-02] MEDS: MORPHINE 2 MG/ML 1ML SYRINGE (J2270) IV PRN ×2 (19:06→20:18)
[2018-04-02 19:15] LABS: INR 0.96; PROTHROMBIN TIME 12.9 SECONDS (12.1-14.4)
[2018-04-02 19:34] LABS: ALBUMIN 3.5 GM/DL (3.2-5.2); ALT/SGPT 17 U/L (12-78); BILIRUBIN,DIRECT < 0.1 MG/DL (0.0-0.2); BILIRUBIN,TOTAL 0.2 MG/DL (0.2-1.0); BLOOD UREA NITROGEN 19 MG/DL (7-18); CALCIUM LEVEL 8.7 MG/DL (8.5-10.1); CARBON DIOXIDE LEVEL 25 MEQ/L (21-32); CHLORIDE LEVEL 109 MEQ/L (98-107); CREATININE FOR GFR 0.88 MG/DL (0.55-1.30); GLOMERULAR FILTRATION RATE > 60.0 (>60); GLUCOSE, FASTING 83 MG/DL (70-100); LIPASE 122 U/L (73-393); POTASSIUM SERUM 4.2 MEQ/L (3.5-5.1); SODIUM LEVEL 141 MEQ/L (136-145); TOTAL PROTEIN 6.4 GM/DL (6.4-8.2)
[2018-04-02 19:46] LABS: HCG, SERUM QUALITATIVE NEGATIVE (NEGATIVE)
--- NOTE | 2018-04-02 20:11 | REP ---
Clinical: Abdominal and epigastric pain. Technique: Axial noncontrast images from the lung bases to the pubic symphysis with coronal and sagittal re-formations. Comparison: 02/10/2018. Findings: Lung bases demonstrate minimal bibasilar atelectasis and dependent changes (left greater than right). Hepatomegaly suggested. Spleen, pancreas, bilateral adrenal glands and kidneys are normal for noncontrast examination. The patient appears to be status post cholecystectomy and gastric bypass surgery. The enteric system is without obstruction or acute inflammatory process. Pelvis demonstrates normal bladder and age-appropriate uterus/adnexa. No ascites. No free air. No obvious adenopathy. Abdominal aorta without aneurysm. Musculoskeletal structures without focal osseous abnormality. Impression: 1. No acute abdominopelvic pathology appreciated. 2. No ascites, inflammatory stranding or adenopathy. 3. Evidence for prior cholecystectomy and gastric bypass surgery. 4. Trace left basilar dependent changes and atelectasis. Electronically Signed by Lauro Neal MD 04/02/2018 08:04 P
[2018-04-02] MEDS ORDERED: DICY20TA11 PO (20:35)
[2018-04-02 20:52] VITALS: BP 125/77
[2018-04-09] MEDS ORDERED: PENI500T PO (23:17)
[2018-04-09] MEDS ORDERED: TRAM50TA2 PO (23:17)
== END 2018-04-02 20:54 | disposition home or self-care (01) ==
LOC: M ED 17:47
DX: K52.9 Noninfective gastroenteritis and colitis, unspecified (principal); M79.7 Fibromyalgia; Z98.84 Bariatric surgery status; Z79.899 Other long term (current) drug therapy; Z79.3 Long term (current) use of hormonal contraceptives; Z88.1 Allergy status to other antibiotic agents; Z88.8 Allergy status to other drugs, medicaments and biological substances; F17.210 Nicotine dependence, cigarettes, uncomplicated
CPT/HCPCS: 74176; 80048; 80076; 83690; 84703; 85025; 85610; 86850; 86900; 86901; 96374; 96375; 96376; 99284; C9113; J2270; J2405

== ENCOUNTER 2018-04-27 19:34 | Emergency (ER) | payer OTHER ==
[~2018-04-27] VITALS: Ht 167.6 cm; Wt 77.3 kg
[~2018-04-27 19:34] MED LIST changes: +DICY20TA11 PO; -LASI20TA PO; +LASI20TA3 PO; +PENI500T PO; -PROM25TA; -PROM25TA PO; +PROM25TA12; +PROM25TA12 PO; +TRAM50TA2 PO
[2018-04-27 19:35] VITALS: BP 135/95
[2018-04-27] MEDS ORDERED: METHOCARBAMOL 750 MG TAB PO ONE (21:30)
[2018-04-27] MEDS ORDERED: traMADol 50 MG TAB PO ONE (23:00)
--- NOTE | 2018-04-27 23:09 | REPVR ---
EXAM: CT Cervical Spine Without Contrast EXAM DATE/TIME: 04/27/2018 10:34 PM CLINICAL HISTORY: 37 years old, female; Injury or trauma; Fall; Initial encounter; Blunt trauma; Additional info: Fell/neck pain TECHNIQUE: Axial computed tomography images of the cervical spine without intravenous contrast. All CT scans at this facility use at least one of these dose optimization techniques: automated exposure control; mA and/or kV adjustment per patient size (includes targeted exams where dose is matched to clinical indication); or iterative reconstruction. Coronal and sagittal reformatted images were created and reviewed. COMPARISON: MRI-Spine,Cervical without con 01/06/2018 9:28 PM FINDINGS: Vertebrae: Straightening of the normal cervical lordosis. Mild levoscoliosis. Alignment anatomic. No CT evidence of acute fracture, dislocation or subluxation. Vertebral body heights maintained. Discs/Spinal canal/Neural foramina: Mild multilevel spondylosis. No significant spinal canal or neural foraminal stenosis. Soft tissues: Grossly unremarkable. Lungs: Grossly unremarkable. IMPRESSION: 1. No CT evidence of acute cervical spine traumatic injury. 2. Additional findings, as above. Electronically signed by: Jagdeep Rios On 04/27/2018 23:09:13 PM
== END 2018-04-27 23:43 | disposition home or self-care (01) ==
LOC: M ED 19:34
DX: M54.2 Cervicalgia (principal); M54.5 Low back pain; G89.29 Other chronic pain; W01.0XXA Fall on same level from slipping, tripping and stumbling without subsequent striking against object, initial encounter; Y92.480 Sidewalk as the place of occurrence of the external cause; M79.7 Fibromyalgia; G43.909 Migraine, unspecified, not intractable, without status migrainosus; M06.9 Rheumatoid arthritis, unspecified; J45.909 Unspecified asthma, uncomplicated; G47.33 Obstructive sleep apnea (adult) (pediatric); K21.9 Gastro-esophageal reflux disease without esophagitis; F41.9 Anxiety disorder, unspecified; F32.9 Major depressive disorder, single episode, unspecified; F43.10 Post-traumatic stress disorder, unspecified; Z98.84 Bariatric surgery status; F17.210 Nicotine dependence, cigarettes, uncomplicated; Z79.891 Long term (current) use of opiate analgesic; Z79.899 Other long term (current) drug therapy; Z88.1 Allergy status to other antibiotic agents; Z88.8 Allergy status to other drugs, medicaments and biological substances

== ENCOUNTER 2018-05-27 10:22 | Emergency (ER) | payer OTHER ==
[~2018-05-27] VITALS: Ht 167.6 cm; Wt 77.3 kg
[2018-05-27] MEDS ORDERED: TRAM50TA2 (10:38)
[2018-05-27] MEDS ORDERED: DICY20TA11 PO (10:38)
[2018-05-27] MEDS ORDERED: SUCR1TAB56 PO (10:38)
[2018-05-27 11:16] VITALS: BP 130/91
--- NOTE | 2018-05-27 11:39 | REP ---
RIGHT HUMERUS, FOUR VIEWS: HISTORY: Trauma. There is no acute fracture or dislocation. The joint spaces are normal in appearance. IMPRESSION: There is no acute fracture or dislocation. Electronically Signed by Leonel Lara MD 05/27/2018 11:40 A
== END 2018-05-27 11:47 | disposition home or self-care (01) ==
LOC: M ED 10:22
DX: S40.021A Contusion of right upper arm, initial encounter (principal); X58.XXXA Exposure to other specified factors, initial encounter; Y92.099 Unspecified place in other non-institutional residence as the place of occurrence of the external cause; Y93.9 Activity, unspecified; Y99.9 Unspecified external cause status; G43.909 Migraine, unspecified, not intractable, without status migrainosus; M79.7 Fibromyalgia; M06.9 Rheumatoid arthritis, unspecified; I51.9 Heart disease, unspecified; J45.909 Unspecified asthma, uncomplicated; G47.30 Sleep apnea, unspecified; K21.9 Gastro-esophageal reflux disease without esophagitis; K58.9 Irritable bowel syndrome, unspecified; Z98.84 Bariatric surgery status; Z87.01 Personal history of pneumonia (recurrent); Z87.440 Personal history of urinary (tract) infections; Z72.0 Tobacco use; Z79.899 Other long term (current) drug therapy; Z88.8 Allergy status to other drugs, medicaments and biological substances; Z88.6 Allergy status to analgesic agent; Z88.1 Allergy status to other antibiotic agents

== ENCOUNTER 2018-07-15 22:27 | Emergency (ER) | payer OTHER ==
[~2018-07-15] VITALS: Ht 167.6 cm; Wt 77.3 kg
[~2018-07-15 22:27] MED LIST changes: -/ESOM40CA; -/PREG100CA PO; -DICY10CA PO; +DICY1CAP8 PO; +LYRI100C PO; +NEXI1CAP3; -NORC1TAB4 PO; +NORC1TAB7 PO; +TRAM50TA2; +VITA500T17 PO; -VITA500T53 PO
[2018-07-15] MEDS ORDERED: TIZA4TAB4 PO (22:40)
[2018-07-16 00:17] LABS: INFLUENZA A AMPLIFICATION NEGATIVE (NEGATIVE); INFLUENZA B AMPLIFICATION NEGATIVE (NEGATIVE)
[2018-07-16] MEDS: methylPREDNISolone INJ 125 MG/2 ML VIAL (J2930) IM ONE (01:38)
[2018-07-16 01:46] VITALS: BP 126/81
[2018-07-16] MEDS ORDERED: OSEL75CA PO (01:47)
[2018-07-16] MEDS ORDERED: PRED20TA PO (01:47)
--- NOTE | 2018-07-16 02:38 | REP ---
Clinical: Cough. Technique: PA and lateral. Comparison: 02/04/2018. Findings: Subtle medial right lower lobe atelectasis is suggested. No further consolidation, effusion, or pneumothorax. Cardiac silhouette is normal. Skeletal structures are intact. Impression: Subtle medial right lower lobe atelectasis. Electronically Signed by Lauro Neal MD 07/16/2018 02:29 A
== END 2018-07-16 01:57 | disposition home or self-care (01) ==
LOC: M ED 22:27
DX: J06.9 Acute upper respiratory infection, unspecified (principal); F31.9 Bipolar disorder, unspecified; F17.200 Nicotine dependence, unspecified, uncomplicated; Z87.09 Personal history of other diseases of the respiratory system; Z88.8 Allergy status to other drugs, medicaments and biological substances; Z88.1 Allergy status to other antibiotic agents; Z79.3 Long term (current) use of hormonal contraceptives; Z79.899 Other long term (current) drug therapy
CPT/HCPCS: 71046; 87631; 99283; J2930

== ENCOUNTER 2018-08-29 12:02 | Emergency (ER) | payer OTHER ==
[~2018-08-29] VITALS: Ht 167.6 cm; Wt 81.8 kg
[~2018-08-29 12:02] MED LIST changes: +OSEL75CA PO; +TIZA4TAB4 PO
[2018-08-29] MEDS ORDERED: PERCOCET 5MG/325MG TAB PO ONE (15:00)
[2018-08-29] MEDS ORDERED: METHOCARBAMOL 1,000 MG/10 ML VIAL (J2800) IM ONE (15:00)
[2018-08-29] MEDS ORDERED: METHOCARBAMOL 750 MG TAB PO ONE (15:15)
[2018-08-29] MEDS ORDERED: ROBA500T PO (15:58)
[2018-08-29] MEDS ORDERED: ENDO10TA8 PO (15:58)
[2018-08-29 16:08] VITALS: BP 135/89
== END 2018-08-29 16:10 | disposition home or self-care (01) ==
LOC: M ED 12:02
DX: G89.29 Other chronic pain (principal); M54.9 Dorsalgia, unspecified; W10.9XXA Fall (on) (from) unspecified stairs and steps, initial encounter; Y92.099 Unspecified place in other non-institutional residence as the place of occurrence of the external cause; Y93.89 Activity, other specified; Y99.9 Unspecified external cause status; M51.9 Unspecified thoracic, thoracolumbar and lumbosacral intervertebral disc disorder; Z98.84 Bariatric surgery status; Z72.0 Tobacco use; Z79.899 Other long term (current) drug therapy; Z88.6 Allergy status to analgesic agent; Z88.1 Allergy status to other antibiotic agents; Z88.8 Allergy status to other drugs, medicaments and biological substances

== ENCOUNTER 2018-10-06 00:24 | Emergency (ER) | payer MEDICAID, OTHER, SELFPAY ==
[~2018-10-06] VITALS: Ht 167.6 cm; Wt 79.5 kg
[~2018-10-06 00:24] MED LIST changes: +ENDO10TA8 PO
[2018-10-06] MEDS ORDERED: PERCOCET 5MG/325MG TAB PO ONE (04:00)
[2018-10-06] MEDS ORDERED: OXYCODONE/APAP 5MG/325MG(BULK FOR ED) 1 TABLET PO ONE (04:45)
[2018-10-06 04:47] VITALS: BP 114/66
--- NOTE | 2018-10-06 08:06 | REP ---
Clinical: Trauma. Technique: Three views of the sacrum and coccyx. Findings: Frontal lateral views of the sacrum and coccyx demonstrates a normal sacroiliac joints sacrum and coccygeal bones without evidence for acute fracture or dislocation/subluxation. No subcutaneous emphysema or foreign body. Impression: Normal examination. No evidence for acute fracture/injury involving the sacrum and coccyx. The Electronically Signed by Lauro Neal MD 10/06/2018 07:58 A
== END 2018-10-06 04:49 | disposition home or self-care (01) ==
LOC: M ED 00:24
DX: S30.0XXA Contusion of lower back and pelvis, initial encounter (principal); W01.0XXA Fall on same level from slipping, tripping and stumbling without subsequent striking against object, initial encounter; Y92.89 Other specified places as the place of occurrence of the external cause; M54.9 Dorsalgia, unspecified; Z88.5 Allergy status to narcotic agent; F17.210 Nicotine dependence, cigarettes, uncomplicated; Z88.6 Allergy status to analgesic agent; Z88.8 Allergy status to other drugs, medicaments and biological substances; Z88.1 Allergy status to other antibiotic agents; Z79.899 Other long term (current) drug therapy; Z79.891 Long term (current) use of opiate analgesic

== ENCOUNTER 2018-11-02 22:29 | Emergency (ER) | payer MEDICAID, SELFPAY ==
[~2018-11-02] VITALS: Ht 167.6 cm; Wt 81.8 kg
[~2018-11-02 22:29] MED LIST changes: -OXYB10TA PO; +OXYB10TA2 PO
[2018-11-03] MEDS ORDERED: KETOROLAC 60 MG/2 ML VIAL (J1885) IM ONE (00:45)
[2018-11-03] MEDS ORDERED: LIDOCAINE 5% (LIDODERM) PATCH TD ONE (00:45)
[2018-11-03] MEDS ORDERED: oxyCODONE 5MG TAB PO STA (01:50)
[2018-11-03 02:20] VITALS: BP 112/56
[2018-11-03] MEDS ORDERED: **NOTE PATIENT COMMENT** MISC XX ONE (12:45)
== END 2018-11-03 02:22 | disposition home or self-care (01) ==
LOC: M ED 22:29
DX: M54.5 Low back pain (principal); M79.604 Pain in right leg; K27.9 Peptic ulcer, site unspecified, unspecified as acute or chronic, without hemorrhage or perforation; M06.9 Rheumatoid arthritis, unspecified; Z98.84 Bariatric surgery status; Z91.81 History of falling; F17.210 Nicotine dependence, cigarettes, uncomplicated; Z88.1 Allergy status to other antibiotic agents; Z88.8 Allergy status to other drugs, medicaments and biological substances; Z88.6 Allergy status to analgesic agent; Z79.899 Other long term (current) drug therapy; Z79.891 Long term (current) use of opiate analgesic
CPT/HCPCS: 96372; 99283; J1885

== ENCOUNTER 2018-11-29 21:27 | Emergency (ER) | payer MEDICAID, OTHER ==
[~2018-11-29] VITALS: Ht 167.6 cm; Wt 81.8 kg
[~2018-11-29 21:27] MED LIST changes: -OXYB10TA2 PO; +OXYB10TA23 PO
[2018-11-29 22:26] LABS: BASO % 0.2 % (0.0-1.0); EOS # 0.2 10^3/uL (0.0-0.50); HEMATOCRIT 36.1 % (36.0-47.0); LYMPH # 2.1 10^3/uL (1.5-4.5); LYMPH % 12.3 % (24.0-44.0); MEAN CORPUSCULAR HEMOGLOBIN 27.5 pg (27.0-33.0); MEAN CORPUSCULAR HGB CONC 33.2 g/dl (32.0-36.5); MEAN CORPUSCULAR VOLUME 82.6 fl (80.0-96.0); MONO # 1.5 10^3/uL (0.0-0.8); MONO % 9.2 % (0.0-5.0); PLATELET COUNT, AUTOMATED 311 10^3/uL (150-450); RED BLOOD COUNT 4.37 10^6/uL (4.00-5.40); WHITE BLOOD COUNT 16.8 10^3/uL (4.0-10.0)
[2018-11-29 22:49] LABS: BLOOD UREA NITROGEN 11 MG/DL (7-18); CALCIUM LEVEL 8.7 MG/DL (8.5-10.1); CARBON DIOXIDE LEVEL 28 MEQ/L (21-32); CHLORIDE LEVEL 107 MEQ/L (98-107); CK-MB VALUE MASS < 1.0 NG/ML (<3.6); CPK CREATINE PHOSPHOKINASE 41 U/L (26-192); CREATININE FOR GFR 0.84 MG/DL (0.55-1.30); GLOMERULAR FILTRATION RATE > 60.0 (>58); GLUCOSE, FASTING 86 MG/DL (70-100); LIPASE 114 U/L (73-393); MB/CK RELATIVE INDEX 2.44 (< OR =4); NT-PRO BNP 75 PG/ML (<125); POTASSIUM SERUM 4.3 MEQ/L (3.5-5.1); SODIUM LEVEL 140 MEQ/L (136-145); TROPONIN I < 0.02 NG/ML (< 0.10)
[2018-11-29] MEDS ORDERED: methylPREDNISolone INJ 125 MG/2 ML VIAL (J2930) IV ONE (23:00)
[2018-11-29] MEDS ORDERED: ACETAMINOPHEN 325 MG TAB PO ONE (23:00)
[2018-11-29 23:08] LABS: HCG, SERUM QUALITATIVE NEGATIVE (NEGATIVE)
[2018-11-29] MEDS: IPRATROPIUM 0.5MG/ALBUTEROL 2.5MG INH SOL UD 3ML (DUONEB)(J7620) NEB PRN ×3 (23:25→23:40)
[2018-11-29 23:28] LABS: ABG BASE EXCESS -0.1 (-2.0-2.0); ABG HCO3 21.8 MEQ/L (22.0-26.0); ABG O2 SATURATION 98.5 % (95.0-99.0); ABG PARTIAL PRESSURE CO2 27.8 mmHg (35.0-45.0); ABG PARTIAL PRESSURE O2 105.6 mmHg (75.0-100.0); ABG STANDARD HCO3 24.5 MEQ/L (22.0-26.0); ABG TOTAL CO2 22.7 MEQ/L (22.0-29.0); ABG pH (ARTERIAL) 7.513 UNITS (7.350-7.450)
[2018-11-29] MEDS ORDERED: PRED20TA PO (23:56)
[2018-11-30 00:32] VITALS: BP 121/67
--- NOTE | 2018-11-30 01:28 | REP ---
Clinical: Cough. Comparison: 07/16/2018. Findings: Mediastinum and cardiac silhouette are within normal limits and stable. Right lower lobe infiltrate/atelectasis cannot be excluded. No effusion. No pneumothorax. Skeletal structures intact. Impression: Possible right lower lobe infiltrate/atelectasis. Follow-up examination recommended. Electronically Signed by Lauro Neal MD 11/30/2018 01:19 A
--- NOTE | 2018-11-30 07:04 | ED PDOC ---
Post-Departure Follow-Up cxr report noted. asked ed charge loader to call and rx with cefdinir 300 mg bid x 1 0 d after confirming allergies Henry Cook MD Nov 30, 2018 07:04
--- NOTE | 2018-11-30 08:07 | ECGEPIP ---
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
[2019-02-15] MEDS ORDERED: MAPA500T2 PO (20:19)
== END 2018-11-30 00:42 | disposition home or self-care (01) ==
LOC: M ED 21:27
DX: R09.1 Pleurisy (principal); J45.909 Unspecified asthma, uncomplicated; M79.7 Fibromyalgia; Z98.84 Bariatric surgery status; Z72.0 Tobacco use; Z79.899 Other long term (current) drug therapy; Z88.6 Allergy status to analgesic agent; Z88.1 Allergy status to other antibiotic agents; Z88.8 Allergy status to other drugs, medicaments and biological substances
CPT/HCPCS: 36600; 71045; 80048; 82550; 82553; 82803; 83605; 83690; 83880; 84703; 85025; 93005; 94640; 96374; 99284; J2930

== ENCOUNTER → 2019-06-07 | Outpatient (CLI) | payer OTHER ==
[~2019-06-07] MED LIST changes: +MAPA500T2 PO
--- NOTE | 2019-06-07 12:32 | REP ---
LUMBOSACRAL SPINE SERIES: Five views of the lumbosacral spine are performed. There is no compression fracture. There is normal lumbar lordosis. There is mild diffuse spurring. There is mild disc space narrowing and subchondral sclerosis at L1-2. There is slight narrowing at L4-5. There is sclerosis and spurring at the posterior facets of L5-S1. The posterior elements are intact. There is mild sclerosis of the sacroiliac joint bilaterally. IMPRESSION: Degenerative changes as above. These appear similar to the prior exam of 12/18/2016. Electronically Signed by Taras Mak MD 06/07/2019 07:55 P
== END ==
LOC: M RAD 11:12
PROVIDERS: ATTEND Family Medicine
DX: M54.5 Low back pain (principal)

== ENCOUNTER 2019-07-12 00:28 | Emergency (ER) | payer OTHER ==
[~2019-07-12] VITALS: Ht 167.6 cm; Wt 81.8 kg
[2019-07-12] MEDS ORDERED: methylPREDNISolone INJ 125 MG/2 ML VIAL (J2930) IV ONE (01:45)
[2019-07-12] MEDS ORDERED: METHOCARBAMOL 1,000 MG/10 ML VIAL (J2800) IV ONE (01:45)
[2019-07-12 03:15] VITALS: BP 126/66
[2019-07-12] MEDS ORDERED: PRED10TA2 PO (03:25)
[2019-07-12] MEDS ORDERED: ZANA4CAP PO (03:25)
== END 2019-07-12 03:40 | disposition home or self-care (01) ==
LOC: M ED 00:28
DX: M54.14 Radiculopathy, thoracic region (principal); M54.16 Radiculopathy, lumbar region; M54.41 Lumbago with sciatica, right side; M54.42 Lumbago with sciatica, left side; M48.061 Spinal stenosis, lumbar region without neurogenic claudication; M51.36 Other intervertebral disc degeneration, lumbar region; R33.9 Retention of urine, unspecified; M06.9 Rheumatoid arthritis, unspecified; M79.7 Fibromyalgia; Z98.84 Bariatric surgery status; Z79.891 Long term (current) use of opiate analgesic; Z88.8 Allergy status to other drugs, medicaments and biological substances; Z88.1 Allergy status to other antibiotic agents
CPT/HCPCS: 96374; 96375; 99284; J2800; J2930

== ENCOUNTER 2019-09-03 23:20 | Emergency (ER) | payer OTHER ==
[~2019-09-03] VITALS: Ht 167.6 cm; Wt 81.8 kg
[~2019-09-03 23:20] MED LIST changes: +OXYC-1 PO; -OXYC15TA76 PO; +PRED10TA2 PO; +ZANA4CAP PO
[2019-09-03 23:31] VITALS: BP 148/89
[2019-09-03] MEDS ORDERED: KETOROLAC 60MG 2ML VIAL IM ONE (23:45)
[2019-09-03] MEDS ORDERED: methylPREDNISolone INJ 125 MG/2 ML VIAL (J2930) IM ONE (23:45)
[2019-09-04 00:39] LABS: BASO % 0.4 % (0.0-1.0); EOS # 0.5 10^3/uL (0.0-0.5); EOS % 6.1 % (0.0-3.0); HEMOGLOBIN 11.1 g/dl (12.0-15.5); LYMPH # 2.3 10^3/uL (1.5-5.0); LYMPH % 28.1 % (24.0-44.0); MEAN CORPUSCULAR HEMOGLOBIN 23.9 pg (27.0-33.0); MEAN CORPUSCULAR HGB CONC 31.7 g/dl (32.0-36.5); MEAN CORPUSCULAR VOLUME 75.3 fl (80.0-96.0); MONO # 0.7 10^3/uL (0.0-0.8); MONO % 8.6 % (0.0-5.0); NEUTROPHILS # 4.6 10^3/uL (1.5-8.5); NEUTROPHILS % 56.6 % (36.0-66.0); PLATELET COUNT, AUTOMATED 374 10^3/uL (150-450); RED BLOOD COUNT 4.65 10^6/uL (4.00-5.40); WHITE BLOOD COUNT 8.1 10^3/uL (4.0-10.0)
[2019-09-04] MEDS ORDERED: GASTROGRAFIN SOLUTION 30ML (Q9963) As Ordered ONE (00:41)
[2019-09-04] MEDS: GASTROGRAFIN SOLUTION 30ML PO SCH ×2 (00:48→01:16)
[2019-09-04 00:57] LABS: HCG, SERUM QUALITATIVE NEGATIVE (NEGATIVE)
[2019-09-04 01:03] LABS: APPEARANCE, URINE HAZY (CLEAR); BACTERIA, URINE AUTO NEGATIVE (NEGATIVE); BILIRUBIN, URINE AUTO NEGATIVE (NEGATIVE); BLOOD, URINE BLOOD NEGATIVE (NEGATIVE); COLOR, URINE YELLOW (YELLOW); GLUCOSE, URINE (UA) AUTO NEGATIVE (NEGATIVE); KETONE, URINE AUTO TRACE mg/dL (NEGATIVE); LEUKOCYTE ESTERASE, URINE AUTO NEGATIVE (NEGATIVE); NITRITE, URINE AUTO NEGATIVE (NEGATIVE); PROTEIN, URINE AUTO NEGATIVE (NEGATIVE); RBC, URINE AUTO 1 /HPF (0-3); SPECIFIC GRAVITY URINE AUTO 1.008 (1.002-1.035); SQUAMOUS EPITHELIAL CELL UR AU 1 /HPF (0-6); UROBILINOGEN, URINE AUTO 0.2 mg/dL (0.0-2.0); WBC, URINE AUTO 0 /HPF (0-3)
[2019-09-04 01:09] LABS: ALBUMIN 3.5 GM/DL (3.2-5.2); ALT/SGPT 21 U/L (12-78); BILIRUBIN,DIRECT < 0.1 MG/DL (0.0-0.2); BILIRUBIN,TOTAL 0.3 MG/DL (0.2-1.0); BLOOD UREA NITROGEN 9 MG/DL (7-18); CALCIUM LEVEL 8.3 MG/DL (8.5-10.1); CARBON DIOXIDE LEVEL 23 MEQ/L (21-32); CHLORIDE LEVEL 107 MEQ/L (98-107); CK-MB VALUE MASS < 1.0 NG/ML (<3.6); CPK CREATINE PHOSPHOKINASE 94 U/L (26-192); GLOMERULAR FILTRATION RATE > 60.0 (>58); GLUCOSE, FASTING 77 MG/DL (70-100); LIPASE 88 U/L (73-393); MB/CK RELATIVE INDEX 1.06 (< OR =4); POTASSIUM SERUM 4.5 MEQ/L (3.5-5.1); SODIUM LEVEL 136 MEQ/L (136-145); TOTAL PROTEIN 6.6 GM/DL (6.4-8.2); TROPONIN I < 0.02 NG/ML (< 0.10)
[2019-09-04] MEDS ORDERED: GI COCKTAIL 50ML BTL(HYOSCYAMINE/MAALOX/LIDOCAINE VISCOUS)(1:3:1) PO ONE (01:15)
--- NOTE | 2019-09-04 19:50 | ECGEPIP ---
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
== END 2019-09-04 02:00 | disposition left against medical advice (07) ==
LOC: M ED 23:20
DX: R10.9 Unspecified abdominal pain (principal); G89.29 Other chronic pain; Z76.5 Malingerer [conscious simulation]; J45.909 Unspecified asthma, uncomplicated; G43.909 Migraine, unspecified, not intractable, without status migrainosus; F17.200 Nicotine dependence, unspecified, uncomplicated; F41.9 Anxiety disorder, unspecified; F32.9 Major depressive disorder, single episode, unspecified; Z98.84 Bariatric surgery status; Z88.2 Allergy status to sulfonamides; Z88.6 Allergy status to analgesic agent; Z88.8 Allergy status to other drugs, medicaments and biological substances; Z86.14 Personal history of Methicillin resistant Staphylococcus aureus infection; Z79.899 Other long term (current) drug therapy

== ENCOUNTER → 2020-08-29 | Outpatient (CLI) | payer OTHER ==
[~2020-08-29] MED LIST changes: +GABA-282 PO; +GABA-283 PO; -GABA-843 PO; -GABA-845 PO; +METH-1164; -METH1TAB40; +PANT40TA29 PO; -PANT40TA3 PO
--- NOTE | 2020-08-29 19:17 | REPVR ---
PROCEDURE INFORMATION: Exam: MR Cervical Spine Without Contrast Exam date and time: 08/29/2020 6:32 PM Age: 39 years old Clinical indication: Neck pain; Additional info: Neck/back pain TECHNIQUE: Imaging protocol: Multiplanar magnetic resonance images of the cervical spine without contrast. COMPARISON: MRI-Spine,Cervical without con 01/06/2018 9:28 PM FINDINGS: Vertebrae: Unremarkable. Spinal cord: Normal signal. No cord compression. C2-C3: No significant disc disease. No significant spinal stenosis. C3-C4: Mild annular bulge and intervertebral osteophytes C3-C4 without neural compromise. C4-C5: No significant disc disease. No significant spinal stenosis. C5-C6: Broad posterior disc protrusion at C5-C6 effaces the ventral subarachnoid space resulting in moderate cord impingement, left hemicord greater than right. Also noted is severe foraminal stenosis on the left and moderate to severe foraminal stenosis on the right. Findings stable in comparison to the prior study of 01/06/2018. C6-C7: No significant disc disease. No significant spinal stenosis. C7-T1: No significant disc disease. No significant spinal stenosis. Soft tissues: Unremarkable. Vertebral arteries: Expected flow voids in the vertebral arteries. IMPRESSION: 1. Mild annular bulge and intervertebral osteophytes C3-C4 without neural compromise. 2. Broad posterior disc protrusion at C5-C6 effaces the ventral subarachnoid space resulting in moderate cord impingement, left hemicord greater than right. Also noted is severe foraminal stenosis on the left and moderate to severe foraminal stenosis on the right. Findings stable in comparison to the prior study of 01/06/2018. Electronically signed by: Arias Humphrey On 08/29/2020 19:16:50 PM
--- NOTE | 2020-08-29 19:20 | REPVR ---
PROCEDURE INFORMATION: Exam: MR Lumbar Spine Without Contrast Exam date and time: 08/29/2020 6:32 PM Age: 39 years old Clinical indication: Low back pain; Additional info: Neck/back pain TECHNIQUE: Imaging protocol: Multiplanar magnetic resonance images of the lumbar spine without intravenous contrast. COMPARISON: MRI-Spine, L.S. without con 01/06/2018 10:18 PM FINDINGS: Vertebrae: Unremarkable. Spinal cord: Normal signal. No cord compression. L1-L2: Diffusely bulging annulus L1-L2 with right posterolateral and foraminal disc protrusion resulting and mild central spinal stenosis on the left and moderate central spinal stenosis on the right with moderate foraminal narrowing. L2-L3: No significant disc disease. No significant spinal canal stenosis. No neural foraminal stenosis. L3-L4: No significant disc disease. No significant spinal canal stenosis. No neural foraminal stenosis. L4-L5: There is a mild central spinal stenosis at L4-L5 secondary to diffuse annular bulging, thickened ligamentum flavum without significant facet joint arthropathy. No significant foraminal stenosis. L5-S1: Bilateral facet joint arthropathy L5-S1. No significant disc disease. Soft tissues: Unremarkable. IMPRESSION: 1. Diffusely bulging annulus L1-L2 with right posterolateral and foraminal disc protrusion resulting and mild central spinal stenosis on the left and moderate central spinal stenosis on the right with moderate foraminal narrowing. 2. There is a mild central spinal stenosis at L4-L5. No significant foraminal stenosis. 3. Bilateral facet joint arthropathy L5-S1. No significant disc disease. Electronically signed by: Arias Humphrey On 08/29/2020 19:19:52 PM
== END ==
LOC: M RAD 17:38
PROVIDERS: ATTEND Orthopaedic Surgery
DX: M50.222 Other cervical disc displacement at C5-C6 level (principal); M48.061 Spinal stenosis, lumbar region without neurogenic claudication; M25.78 Osteophyte, vertebrae

== ENCOUNTER → 2022-03-27 | Outpatient (CLI) | payer OTHER ==
[~2022-03-27] MED LIST changes: -DICY20TA11 PO; +DICY20TA20 PO; -DULE200A IN; +ETON68IM SC; +MOME13HF7 IN; -NEXP1IMP SC; +TIZA10TA PO; -TIZA4TAB4 PO
[2022-03-27 10:21] LABS: HEMATOCRIT 37.4 % (36.0-47.0); HEMOGLOBIN 11.9 g/dl (12.0-15.5); MEAN CORPUSCULAR HEMOGLOBIN 26.4 pg (27.0-33.0); MEAN CORPUSCULAR HGB CONC 31.8 g/dl (32.0-36.5); MEAN CORPUSCULAR VOLUME 82.9 fl (80.0-96.0); PLATELET COUNT, AUTOMATED 297 10^3/uL (150-450); RED BLOOD COUNT 4.51 10^6/uL (4.00-5.40); WHITE BLOOD COUNT 6.5 10^3/uL (4.0-10.0)
[2022-03-27 10:50] LABS: HEMOGLOBIN A1c 5.2 % (4.0-6.0)
[2022-03-27 10:53] LABS: ALBUMIN 3.5 G/DL (3.2-5.2); ALKALINE PHOSPHATASE 93 U/L (46-116); ALT/SGPT 13 U/L (7.0-40); AST/SGOT 18 U/L (<34); BILIRUBIN,TOTAL 0.3 MG/DL (0.3-1.2); BLOOD UREA NITROGEN 10 MG/DL (9-23); CALCIUM LEVEL 8.7 MG/DL (8.5-10.1); CARBON DIOXIDE LEVEL 28 MMOL/L (20-31); CHLORIDE LEVEL 106 MMOL/L (98-107); CHOLESTEROL LEVEL 170 MG/DL (<200); CHOLESTEROL RISK RATIO 3.02 (<5); CREATININE FOR GFR 0.87 MG/DL (0.55-1.30); GLOMERULAR FILTRATION RATE > 60.0 (>58); GLUCOSE, FASTING 73 MG/DL (60-100); HDL CHOLESTEROL 56.2 MG/DL (>40); IRON (FE) 57 UG/DL (50-170); LDL CHOLESTEROL 96.6 MG/DL (<100); NON-HDL-C 114 MG/DL; PERCENT SATURATION 15.4 % (13.2-45.0); POTASSIUM SERUM 4.4 MMOL/L (3.5-5.1); SODIUM LEVEL 139 MMOL/L (136-145); TOTAL IRON BINDING CAPACITY 370 UG/DL (250-425); TOTAL PROTEIN 6.1 G/DL (5.7-8.2); TRIGLYCERIDES LEVEL 86 MG/DL (<150)
[2022-03-27 11:00] LABS: THYROID STIMULATING HORMONE 0.961 uIU/ML (0.55-4.78); VITAMIN B12 LEVEL 213 PG/ML (211-911)
[2022-03-27 13:08] LABS: TOTAL 25(OH) VITAMIN D 13.3 NG/ML (20.0-100.0)
== END ==
LOC: M LAB 09:01
PROVIDERS: ATTEND Family Medicine
DX: D64.9 Anemia, unspecified (principal); R53.83 Other fatigue; E03.9 Hypothyroidism, unspecified